=== PATIENT | female | born 1970 | race African-American/Black ===

== ENCOUNTER 2017-03-03 19:36 | Emergency (ER) | payer OTHER ==
[~2017-03-03] VITALS: Ht 160 cm; Wt 113.4 kg
[~2017-03-03 19:36] MED LIST: HYDR-971 PO; LISI1TAB5 PO; METR500T PO
[2017-03-03 19:54] VITALS: BP 170/102
--- NOTE | 2017-03-03 20:29 | PHYS DOC ---
Past Medical History Past Medical History: Hypertension Past Surgical History: , Tubal ligation Alcohol Use: None Drug Use: None Adult General Chief Complaint Chief Complaint: ANKLE PROBLEM HPI HPI Patient is a 46 year old female presents emergency department stating that she has having right ankle and Achilles pain and discomfort. She states that it started after she had been working a couple days ago. Patient states that she is was taken naproxen yesterday for the pain and discomfort however today she has not taken anything for pain. She states the pain is increased when she tries to ambulate. She does have full range of motion of the ankle. Peripheral pulses are 2+ cap refill brisk less than 2 seconds. She denies any trauma injury to this foot or ankle area. Review of Systems Review of Systems Constitutional: Denies fever or chills [] Eyes: Denies change in visual acuity, redness, or eye pain [] HENT: Denies nasal congestion or sore throat [] Respiratory: Denies cough or shortness of breath [] Cardiovascular: No additional information not addressed in HPI [] GI: Denies abdominal pain, nausea, vomiting, bloody stools or diarrhea [] : Denies dysuria or hematuria [] Musculoskeletal: Denies back pain. Complaint of right ankle/Achilles tendon discomfort. Integument: Denies rash or skin lesions [] Neurologic: Denies headache, focal weakness or sensory changes [] Endocrine: Denies polyuria or polydipsia [] Allergies Allergies Allergies Coded Allergies Type Severity Reaction Last Updated Verified Sulfa (Sulfonamide Antibiotics) Allergy Intermediate Hives. 05/05/16 Yes Physical Exam Physical Exam Constitutional: Well developed, well nourished, no acute distress, non-toxic appearance. [] HENT: Normocephalic, atraumatic, bilateral external ears normal, oropharynx moist, no oral exudates, nose normal. [] Eyes: PERRLA, EOMI, conjunctiva normal, no discharge. [] Neck: Normal range of motion, no tenderness, supple, no stridor. [] Cardiovascular:Heart rate regular rhythm Lungs & Thorax: No respiratory distress noted Skin: Warm, dry, no erythema, no rash. [] Back: No tenderness Extremities: tenderness noted at the right Achilles tendon area. This area appears to be slightly red. Gonzalez test with patient noted to have flexion of the foot. She has good sensation noted to the toes. Peripheral pulses are 2+ cap refill brisk less than 2 seconds. Patient does limp when she tries to ambulate. no cyanosis, no clubbing, ROM intact, no edema. [] Neurologic: Alert and oriented X 3, normal motor function, normal sensory function, no focal deficits noted. [] Psychologic: Affect normal, judgement normal, mood normal. [] Current Patient Data Vital Signs Vital Signs Date Time Temp Pulse Resp B/P (MAP) Pulse Ox O2 Delivery O2 Flow Rate FiO2 03/03/17 19:54 98.6 88 18 100 Room Air 98.6 EKG EKG [] Radiology/Procedures Radiology/Procedures [] Course & Med Decision Making Course & Med Decision Making Pertinent Labs and Imaging studies reviewed. (See chart for details) X-ray negative for any bony abnormalities per Dr. Evans. Patient will be encouraged to wear an Nathen wrap and follow-up with orthopedic. Recommended ice packs on 20 minutes off 20 minutes several times a day. Elevation as much as possible. Continue with the naproxen in which she takes twice a day. Patient agrees with discharge instructions treatment regimens and follow-up recommendations. Signs and symptoms to return back to emergency department as been provided. [] Dragon Disclaimer Dragon Disclaimer This electronic medical record was generated, in whole or in part, using a voice recognition dictation system. Departure Departure Impression: Primary Impression: Achilles tendon pain Disposition: 01 HOME, SELF-CARE Condition: STABLE Referrals: UNKNOWN PCP NAME (PCP) JOSE MITCHELL MD Patient Instructions: Achilles Tendinitis Additional Instructions: X-rays were negative for any bony abnormalities. Ice packs on 20 minutes off 20 minutes several times a day. Elevation as much as possible. Continue using the naproxen in which she state it twice a day. Wear the Nathen wrap for the next 5-7 days. Follow-up with orthopedic in the next week. Return back to emergency prior signs symptoms of become worse. EULALIO PENDLETON [employer] CENTER CONSULTANT Mar 03, 2017 20:29
--- NOTE | 2017-03-04 08:55 | RAD ---
Right ANKLE AP, LATERAL, OBLIQUE Clinical Indication: pain and discomfort Comparison: None. Findings: There is no acute fracture or dislocation. Moderate plantar calcaneal enthesophyte. Small dorsal osteophytes of the mid foot. The ankle mortise is intact. There is no ankle joint effusion. Mild soft tissue swelling. Faint density along the distal Achilles tendon may indicate calcific tendinosis. IMPRESSION: 1. No acute fracture. 2. Mild soft tissue swelling.
== END 2017-03-03 20:36 | disposition home or self-care (01) ==
LOC: ER 19:36
DX: M25.571 Pain in right ankle and joints of right foot (principal); I10 Essential (primary) hypertension; Z88.2 Allergy status to sulfonamides
CPT/HCPCS: 73610; 99284

== ENCOUNTER 2017-04-26 15:13 | Emergency (ER) | payer OTHER ==
[~2017-04-26] VITALS: Ht 160 cm; Wt 117.9 kg
[2017-04-26 15:55] VITALS: BP 145/104
[2017-04-26] MEDS ORDERED: PRED20TA PO (16:51)
[2017-04-26] MEDS ORDERED: CYCL10TA2 PO (16:51)
--- NOTE | 2017-04-26 16:52 | PHYS DOC ---
Past Medical History Past Medical History: Hypertension Past Surgical History: No Surgical History Alcohol Use: None Drug Use: None Adult General Chief Complaint Chief Complaint: LOWER BACK PAIN OR INJURY [facility] HPI Patient is a 46 year old female presents to the emergency department complaining of bilateral lower back pain since Monday. She states that she has having numbness and tingling that goes down bilateral legs to the knee area. She denies any difficulty with ambulation. She has not taken anything for the discomfort. She states that ibuprofen and naproxen causes her. Patient denies any fever, chills or any nausea vomiting denies any loss of bowel or bladder. Review of Systems Review of Systems Constitutional: Denies fever or chills [] Eyes: Denies change in visual acuity, redness, or eye pain [] HENT: Denies nasal congestion or sore throat [] Respiratory: Denies cough or shortness of breath [] Cardiovascular: No additional information not addressed in HPI [] GI: Denies abdominal pain, nausea, vomiting, bloody stools or diarrhea [] : Denies dysuria or hematuria [] Musculoskeletal: Bilateral lower back pain noted joint pain Integument: Denies rash or skin lesions [] Neurologic: Denies headache, focal weakness or sensory changes [] Endocrine: Denies polyuria or polydipsia [] Allergies Allergies Allergies Coded Allergies Type Severity Reaction Last Updated Verified Sulfa (Sulfonamide Antibiotics) Allergy Intermediate Hives. 05/05/16 Yes Physical Exam Physical Exam Constitutional: Well developed, well nourished, no acute distress, non-toxic appearance. [] HENT: Normocephalic, atraumatic, bilateral external ears normal, oropharynx moist, no oral exudates, nose normal. [] Eyes: PERRLA, EOMI, conjunctiva normal, no discharge. [] Neck: Normal range of motion, no tenderness, supple, no stridor. [] Cardiovascular:Heart rate regular rhythm, no murmur [] Lungs & Thorax: Bilateral breath sounds clear to auscultation [] Skin: Warm, dry, no erythema, no rash. [] Back: No thoracic spine, lumbar spine tenderness, no crepitus no deformities no step-offs noted. Patient did have tenderness on bilateral lower back areas. Extremities: No tenderness, no cyanosis, no clubbing, ROM intact, no edema. Patient was able to do straight leg raises with minimal discomfort. Peripheral pulses 2+ cap refill brisk less than 2 seconds. Neurologic: Alert and oriented X 3, normal motor function, normal sensory function, no focal deficits noted. [] Psychologic: Affect normal, judgement normal, mood normal. [] Current Patient Data Vital Signs Vital Signs Date Time Temp Pulse Resp B/P (MAP) Pulse Ox O2 Delivery O2 Flow Rate FiO2 04/26/17 15:55 98.2 87 18 96 Room Air 98.2 EKG EKG [] Radiology/Procedures Radiology/Procedures [] Course & Med Decision Making Course & Med Decision Making Pertinent Labs and Imaging studies reviewed. (See chart for details) Patient will be provided with a prescription for prednisone and Flexeril. Recommended ice packs on 20 minutes off 20 minutes several times a day. Recommended following up with primary care physician next 7-10 days. Signs and symptoms to return back to emergency department as been provided. Patient agrees with discharge instructions, treatment regimens and follow-up recommendations. All questions and concerns were answered patient's bedside. [] Dragon Disclaimer Dragon Disclaimer This electronic medical record was generated, in whole or in part, using a voice recognition dictation system. Departure Departure Impression: Primary Impression: Lower back pain Disposition: HOME, SELF-CARE Condition: STABLE Referrals: NO PCP (PCP) Patient Instructions: Back Pain, Adult, [id number] Additional Instructions: Activity as tolerated. Medication as prescribed. Flexeril will cause drowsiness do not take any be alert and oriented. Ice packs on 20 minutes off 20 minutes several times a day. Follow-up with her primary care physician next 7-10 days. Return back to emergency prior signs symptoms of become worse. Scripts Prednisone (PREDNISONE) 20 Mg Tablet 40 MG PO DAILY, #14 TAB Prov: EULALIO PENDLETON DRILLING MANAGER 04/26/17 Cyclobenzaprine Hcl (CYCLOBENZAPRINE HCL) 10 Mg Tablet 10 MG PO TID, #30 TAB Prov: EULALIO PENDLETON DRILLING MANAGER 04/26/17 EULALIO PENDLETON DRILLING MANAGER Apr 26, 2017 16:52
== END 2017-04-26 17:10 | disposition home or self-care (01) ==
LOC: ER 15:13
DX: M54.5 Low back pain (principal); R20.0 Anesthesia of skin; R20.2 Paresthesia of skin; I10 Essential (primary) hypertension; Z88.2 Allergy status to sulfonamides
CPT/HCPCS: 99283

== ENCOUNTER 2017-08-30 17:46 | Emergency (ER) | payer OTHER ==
[~2017-08-30] VITALS: Ht 160 cm; Wt 117.9 kg
[~2017-08-30 17:46] MED LIST changes: +CYCL10TA2 PO; +PRED20TA PO
[2017-08-30 18:15] VITALS: BP 179/102
[2017-08-30] MEDS ORDERED: AMOX500C PO (19:35)
--- NOTE | 2017-08-30 19:36 | PHYS DOC ---
Past Medical History Past Medical History: Hypertension Past Surgical History: Tubal ligation Alcohol Use: None Drug Use: None Adult General Chief Complaint Chief Complaint: SORE THROAT HPI HPI Patient is a 47 year old female presents to the emergency department stating that she's had a sore throat and discomfort for the last 2 weeks. She states that she feels as though there is something stuck in her throat. Patient states that she had been seen previous for this with a rapid strep be negative. Patient states that she is able to swallow with no difficulty denies any difficulty with breathing. Patient has not been taking anything for the pain and discomfort. She denies any fever, chills or any nausea or vomiting. Review of Systems Review of Systems Constitutional: Denies fever or chills [] Eyes: Denies change in visual acuity, redness, or eye pain [] HENT: Denies nasal congestion c/o sore throat [] Respiratory: Denies cough or shortness of breath [] Cardiovascular: No additional information not addressed in HPI [] GI: Denies abdominal pain, nausea, vomiting, bloody stools or diarrhea [] : Denies dysuria or hematuria [] Musculoskeletal: Denies back pain or joint pain [] Integument: Denies rash or skin lesions [] Neurologic: Denies headache, focal weakness or sensory changes [] Endocrine: Denies polyuria or polydipsia [] All other systems were reviewed and found to be within normal limits, except as documented in this note. Allergies Allergies Allergies Coded Allergies Type Severity Reaction Last Updated Verified Sulfa (Sulfonamide Antibiotics) Allergy Intermediate Hives. 05/05/16 Yes Physical Exam Physical Exam Constitutional: Well developed, well nourished, no acute distress, non-toxic appearance. [] HENT: Normocephalic, atraumatic, bilateral external ears normal, oropharynx moist, no oral exudates, nose normal. Bilateral tympanic membranes appear to be normal. Throat with no erythematous noted. Patient with no anterior cervical adenopathy noted. Patient does have redness noted along bilateral maxillary sinus areas. Eyes: PERRLA, EOMI, conjunctiva normal, no discharge. [] Neck: Normal range of motion, no tenderness, supple, no stridor. [] Cardiovascular:Heart rate regular rhythm, no murmur [] Lungs & Thorax: Bilateral breath sounds clear to auscultation [] Skin: Warm, dry, no erythema, no rash. [] Extremities: No tenderness, no cyanosis, no clubbing, ROM intact, no edema. [] Neurologic: Alert and oriented X 3, normal motor function, normal sensory function, no focal deficits noted. [] Psychologic: Affect normal, judgement normal, mood normal. [] Current Patient Data Vital Signs Vital Signs Date Time Temp Pulse Resp B/P (MAP) Pulse Ox O2 Delivery O2 Flow Rate FiO2 08/30/17 18:15 98.4 90 18 100 Room Air 98.4 EKG EKG [] Radiology/Procedures Radiology/Procedures [] Course & Med Decision Making Course & Med Decision Making Pertinent Labs and Imaging studies reviewed. (See chart for details) Rapid strep was negative. Soft tissue of the neck was negative per . Patient will be placed on amoxicillin 1 tablet twice a day for the next 10 days. Patient is being placed on amoxicillin as these symptoms abated going on for the last 2 weeks. I also suspect that she has a sinusitis infection started as the redness is noted over the maxillary sinus area. Recommended that she follow up with her primary care physician in the next 3-5 days if not feeling better. Recommended plenty of fluids. Tylenol or ibuprofen for fever chills or generalized body aches and discomfort. Patient will be discharged home in stable condition signs and symptoms to return back to the emergency department has been provided. All questions and concerns been answered at the patients bedside. [] Dragon Disclaimer Dragon Disclaimer This electronic medical record was generated, in whole or in part, using a voice recognition dictation system. Departure Departure Impression: Primary Impression: Pharyngitis Additional Impression: Sinusitis Disposition: 01 HOME, SELF-CARE Condition: STABLE Referrals: UNKNOWN PCP NAME (PCP) Patient Instructions: Sinusitis, [id number], Viral and Bacterial Pharyngitis , [id number] Additional Instructions: Activity as tolerated. Medications as prescribed. Drink plenty of fluids. Follow-up through primary care physician the next 3-5 days. Return back to the emergency department as needed for signs and symptoms that become worse. Scripts Amoxicillin (AMOXICILLIN) 500 Mg Capsule 1 CAP PO BID, #20 CAP Prov: EULALIO PENDLETON APRN 08/30/17 Problem Qualifiers Primary Impression: Pharyngitis Pharyngitis/tonsillitis etiology: unspecified etiology Qualified Codes: J02.9 - Acute pharyngitis, unspecified EULALIO PENDLETON [employer] SUPERINTENDENT Aug 30, 2017 19:36
--- NOTE | 2017-08-31 07:28 | RAD ---
Indication: Throat discomfort. Time of exam 1901 hours. 2 views of the soft tissues of the neck were obtained. The prevertebral tissues are normal. No definite foreign body is seen. The cervical spine shows normal alignment. The epiglottis may be slightly thickened. This could be projectional. No other abnormalities are seen. Impression: Possible mild thickening of the epiglottis which can be seen with epiglottitis. Clinical correlation is recommended. CT of the soft tissues of the neck may be useful for further evaluation, if clinically indicated.
[2017-08-31 07:45] LABS: NEGATIVE OBC STREP NEG; POSITIVE OBC STREP POS
== END 2017-08-30 19:40 | disposition home or self-care (01) ==
LOC: ER 17:46
DX: J02.9 Acute pharyngitis, unspecified (principal); J32.9 Chronic sinusitis, unspecified
CPT/HCPCS: 70360; 87070; 87880; 99285-25

== ENCOUNTER 2017-09-15 20:19 | Emergency (ER) | payer OTHER | END 2017-09-15 20:55 | disposition home or self-care (01) | LOC: ER 20:19 | DX: M54.32 Sciatica, left side (principal); M79.675 Pain in left toe(s); I10 Essential (primary) hypertension; Z88.2 Allergy status to sulfonamides | CPT/HCPCS: 99283 ==

== ENCOUNTER 2018-04-07 21:45 | Emergency (ER) | payer OTHER ==
[2018-04-07 22:21] LABS: BILIRUBIN,URINE NEGATIVE (NEG); CLARITY,URINE CLEAR; COLOR,URINE YELLOW; GLUCOSE,URINE NEGATIVE (NEG); NITRITE,URINE NEGATIVE (NEG); PH,URINE 6.5; PROTEIN,URINE NEGATIVE (NEG-TRACE)
[2018-04-07 22:26] LABS: BACTERIA,URINE FEW /HPF (0-FEW); SQUAMOUS EPITHELIAL CELL,UR MANY /LPF
[2018-04-07 22:27] LABS: ADD MAN DIFF? NO
[2018-04-07] MEDS: ONDANSETRON PF 4 MG/2 ML VIAL. IV (22:27)
[2018-04-07] MEDS: FAMOTIDINE 20 MG/2 ML VIAL IVP (22:27)
[2018-04-07 22:29] LABS: BASO % 0 % (0-3); EOS % 0 % (0-3); HEMATOCRIT 37.2 % (36.0-47.0); HEMOGLOBIN 12.6 g/dL (12.0-15.5); LYMPH # 1.6 x10^3/uL (1.0-4.8); LYMPH % 25 % (24-48); MEAN CORPUSCULAR HEMOGLOBIN 26 pg (25-35); MEAN CORPUSCULAR HGB CONC 34 g/dL (31-37); MEAN CORPUSCULAR VOLUME 78 fL (79-100); MONO # 0.4 x10^3/uL (0.0-1.1); MONO % 6 % (0-9); NEUT # 4.5 x10^3uL (1.8-7.7); NEUT % 69 % (31-73); PLATELET COUNT 228 x10^3/uL (140-400); RED BLOOD COUNT 4.76 x10^6/uL (3.50-5.40); RED CELL DISTRIBUTION WIDTH 16.2 % (11.5-14.5); WHITE BLOOD COUNT 6.6 x10^3/uL (4.0-11.0)
[2018-04-07 22:37] LABS: NEG OBC UR NEG; POS OBC UR POS; U PREG PATIENT NEGATIVE (NEG)
[2018-04-07 22:38] LABS: PARTIAL THROMBOPLASTIN TIME 29 SEC (24-38); PROTHROMBIN TIME PATIENT 12.5 SEC (11.7-14.0)
[2018-04-07 22:41] LABS: ANION GAP 7 (6-14); BLOOD UREA NITROGEN 14 mg/dL (7-20); BUN/CREATININE RATIO 18 (6-20); CALCIUM 8.4 mg/dL (8.5-10.1); CARBON DIOXIDE 28 mmol/L (21-32); CHLORIDE 105 mmol/L (98-107); CREATININE 0.8 mg/dL (0.6-1.0); GFR 92.6; GLUCOSE 104 mg/dL (70-99); POTASSIUM 3.2 mmol/L (3.5-5.1); SODIUM 140 mmol/L (136-145)
[2018-04-07 22:47] LABS: ALBUMIN 3.2 g/dL (3.4-5.0); ALBUMIN/GLOBULIN RATIO 0.9 (1.0-1.7); ALK PHOS 98 U/L (46-116); ALT (SGPT) 22 U/L (14-59); AST (SGOT) 17 U/L (15-37); LIPASE 212 U/L (73-393); MAGNESIUM 1.6 mg/dL (1.8-2.4); TOTAL BILIRUBIN 0.7 mg/dL (0.2-1.0); TOTAL PROTEIN 6.6 g/dL (6.4-8.2)
[2018-04-07 22:48] LABS: TROPONINI < 0.017 ng/mL (0.000-0.055)
[2018-04-07 22:55] LABS: CKMB INDEX 0.9 % (0-4); CKMB MASS 0.9 ng/mL (0.0-3.6); CREATINE KINASE 100 U/L (26-192)
[2018-04-08] MEDS: POTASSIUM CHLORIDE 20 MEQ TABLET.ER. PO (00:35)
[2018-04-08] MEDS: MAGNESIUM OXIDE 400 MG TABLET PO (00:35)
== END 2018-04-08 00:38 | disposition home or self-care (01) ==
LOC: ER 04-08 00:38
DX: K80.50 Calculus of bile duct without cholangitis or cholecystitis without obstruction (principal); E87.6 Hypokalemia; E83.42 Hypomagnesemia; I10 Essential (primary) hypertension; Z98.51 Tubal ligation status; Z88.2 Allergy status to sulfonamides
CPT/HCPCS: 36415; 76705; 80053; 81001; 81025; 82553; 83690; 83735; 84484; 85025; 85610; 85730; 93005; 96374; 96375; 99285-25; J2405; S0028

== ENCOUNTER 2018-05-05 13:13 | Emergency (ER) | payer OTHER ==
[~2018-05-05] VITALS: Ht 157.5 cm; Wt 117.9 kg
[~2018-05-05 13:13] MED LIST changes: +AMOX500C PO; +FAMO-63 PO; +NAPR-514 PO; +ONDA4TAB7 PO
[2018-05-05 14:00] VITALS: BP 162/96
--- NOTE | 2018-05-05 14:15 | PHYS DOC ---
Past Medical History Past Medical History: Hypertension Past Surgical History: , Tubal ligation Alcohol Use: None Drug Use: None Adult General Chief Complaint Chief Complaint: ABDOMINAL PAIN HPI HPI Patient is a 47 year old female who presents with umbilical abdominal pain 2 days is nonradiating. Patient states the pain is worse when she bends or when she lays down. Patient also has a lymph node that she noticed in her right armpit on the side of the right breast area. Patient states is nontender. States her last bowel movement was this morning. Patient denies nausea or vomiting, chest pain, shortness of air. Denies any urinary symptoms or fevers. Review of Systems Review of Systems Constitutional: Denies fever or chills [] Eyes: Denies change in visual acuity, redness, or eye pain [] HENT: Denies nasal congestion or sore throat [] Respiratory: Denies cough or shortness of breath [] Cardiovascular: No additional information not addressed in HPI [] GI: Umbilical abdominal pain. Denies nausea, vomiting, bloody stools or diarrhea [] : Denies dysuria or hematuria [] Musculoskeletal: Denies back pain or joint pain [] Integument: Right sided breast lymph node. Denies rash or skin lesions [] Neurologic: Denies headache, focal weakness or sensory changes [] Endocrine: Denies polyuria or polydipsia [] All other systems were reviewed and found to be within normal limits, except as documented in this note. Current Medications Current Medications Current Medications Medications (Trade) Dose Ordered Sig/Tristan Start Time Stop Time Status Last Admin Dose Admin Iohexol (Omnipaque 300 Mg/ml) 75 ml 1X ONCE 05/05/18 14:30 05/05/18 14:31 DC 05/05/18 14:59 75 ML Allergies Allergies Allergies Coded Allergies Type Severity Reaction Last Updated Verified Sulfa (Sulfonamide Antibiotics) Allergy Intermediate Hives. 05/05/16 Yes Physical Exam Physical Exam Constitutional: Well developed, well nourished, no acute distress, non-toxic appearance. [] HENT: Normocephalic, atraumatic, bilateral external ears normal, oropharynx moist, no oral exudates, nose normal. [] Eyes: PERRLA, EOMI, conjunctiva normal, no discharge. [] Neck: Normal range of motion, no tenderness, supple, no stridor. [] Cardiovascular:Heart rate regular rhythm, no murmur [] Lungs & Thorax: Bilateral breath sounds clear to auscultation [] Abdomen: Bowel sounds normal, soft, no tenderness, no masses, no pulsatile masses. [] Skin: Right sided breast raised, nontender, mobile lymph node. Warm, dry, no erythema, no rash. [] Back: No tenderness, no CVA tenderness. [] Extremities: No tenderness, no cyanosis, no clubbing, ROM intact, no edema. [] Neurologic: Alert and oriented X 3, normal motor function, normal sensory function, no focal deficits noted. [] Psychologic: Affect normal, judgement normal, mood normal. [] Current Patient Data Vital Signs Vital Signs Date Time Temp Pulse Resp B/P (MAP) Pulse Ox O2 Delivery O2 Flow Rate FiO2 05/05/18 14:00 98.2 81 16 162/96 (118) 98 Room Air 98.2 Lab Values Laboratory Tests Test 05/05/18 13:45 05/05/18 14:00 Urine Collection Type Unknown Urine Color Yellow Urine Clarity Clear Urine pH 7.5 Urine Specific [place] 1.025 Urine Protein Negative mg/dL (NEG-TRACE) Urine Glucose (UA) Negative mg/dL (NEG) Urine Ketones (Stick) Negative mg/dL (NEG) Urine Blood Negative (NEG) Urine Nitrite Negative (NEG) Urine Bilirubin Negative (NEG) Urine Urobilinogen Dipstick 1.0 mg/dL (0.2 mg/dL) Urine Leukocyte Esterase Trace (NEG) Urine RBC 1-2 /HPF (0-2) Urine WBC Rare /HPF (0-4) Urine Squamous Epithelial Cells Mod /LPF Urine Bacteria Few /HPF (0-FEW) Urine Mucus Slight /LPF Urine Opiates Screen Neg (NEG) Urine Methadone Screen Neg (NEG) Urine Barbiturates Neg (NEG) Urine Phencyclidine Screen Neg (NEG) Urine Amphetamine/Methamphetamine Neg (NEG) Urine Benzodiazepines Screen Neg (NEG) Urine Cocaine Screen Neg (NEG) Urine Cannabinoids Screen Neg (NEG) Urine Ethyl Alcohol Neg (NEG) White Blood Count 7.0 x10^3/uL (4.0-11.0) Red Blood Count 5.12 x10^6/uL (3.50-5.40) Hemoglobin 13.3 g/dL (12.0-15.5) Hematocrit 40.0 % (36.0-47.0) Mean Corpuscular Volume 78 fL (79-100) L Mean Corpuscular Hemoglobin 26 pg (25-35) Mean Corpuscular Hemoglobin Concent 33 g/dL (31-37) Red Cell Distribution Width 16.6 % (11.5-14.5) H Platelet Count 269 x10^3/uL (140-400) Neutrophils (%) (Auto) 70 % (31-73) Lymphocytes (%) (Auto) 23 % (24-48) L Monocytes (%) (Auto) 8 % (0-9) Eosinophils (%) (Auto) 0 % (0-3) Basophils (%) (Auto) 0 % (0-3) Neutrophils # (Auto) 4.9 x10^3uL (1.8-7.7) Lymphocytes # (Auto) 1.6 x10^3/uL (1.0-4.8) Monocytes # (Auto) 0.5 x10^3/uL (0.0-1.1) Eosinophils # (Auto) 0.0 x10^3/uL (0.0-0.7) Basophils # (Auto) 0.0 x10^3/uL (0.0-0.2) Sodium Level 138 mmol/L (136-145) Potassium Level 3.7 mmol/L (3.5-5.1) Chloride Level 104 mmol/L (98-107) Carbon Dioxide Level 26 mmol/L (21-32) Anion Gap 8 (6-14) Blood Urea Nitrogen 18 mg/dL (7-20) Creatinine 0.9 mg/dL (0.6-1.0) Estimated GFR (Cockcroft-Gault) 80.9 BUN/Creatinine Ratio 20 (6-20) Glucose Level 87 mg/dL (70-99) Calcium Level 9.2 mg/dL (8.5-10.1) Total Bilirubin 0.8 mg/dL (0.2-1.0) Aspartate Amino Transferase (AST) 12 U/L (15-37) L Alanine Aminotransferase (ALT) 16 U/L (14-59) Alkaline Phosphatase 94 U/L (46-116) Troponin I Quantitative < 0.017 ng/mL (0.000-0.055) Total Protein 7.0 g/dL (6.4-8.2) Albumin 3.8 g/dL (3.4-5.0) Albumin/Globulin Ratio 1.2 (1.0-1.7) Lipase 236 U/L (73-393) Laboratory Tests 05/05/18 14:00 Laboratory Tests 05/05/18 14:00 EKG EKG Sinus Rhythm[] Interpretation Time: [address] Hernandez Radiology/Procedures Radiology/Procedures CT Abdomen and Chest x ray[] Impressions: [facility] [address] [place] [address] IMAGING REPORT Signed PATIENT: CLINTON TERAN ACCOUNT: [id number] : 1970 LOCATION: ER AGE: 47 SEX: F EXAM STATUS: REG ER ORD. PHYSICIAN: EULALIO RIBERA APRN REASON: Abdominal pain PROCEDURE: CT ABD PELV W/ IV CONTRST ONLY PQRS Compliance statement: One or more of the following individualized dose reduction techniques were utilized for this examination: 1. Automated exposure control. 2. Adjustment of the mA and/or kV according to patient size. 3. Use of iterative reconstruction technique. Indication:LOWER ABD PAIN
OMNI 300 75ML, NO PRIORS TECHNIQUE: CT abdomen and pelvis with IV contrast with multiplanar reformats. COMPARISON: None FINDINGS: Heart is normal in size. No pericardial or pleural effusion. Clear lung bases. Liver, spleen, pancreas, adrenals and kidneys are within normal limits. Single gallstone noted. No pericholecystic fluid. No enlarged retroperitoneal or pelvic adenopathy. No free pelvic fluid or ascites. No bowel obstruction. Normal appendix. Anteverted uterus. Endometrial stripe measures 1.6 mm and is thickened. Urinary bladder demonstrates no radiopaque stones. Small umbilical hernia containing omental fat. Shotty central mesentery lymph nodes are seen with hazy appearance of the mesenteric fat, nonspecific. No pneumoperitoneum. No suspicious bony lesion. IMPRESSION: 1. No bowel obstruction. Normal appendix. 2. No nephrolithiasis or hydronephrosis. 3. Thickened endometrium. Correlate with timing of menstrual cycle. 4. Central shotty mesenteric lymph nodes with haziness in the mesenteric fat, nonspecific. 5. Cholelithiasis without imaging evidence of acute cholecystitis. Electronically signed by: Moises Guillen DO (05/05/2018 3:21 PM) [facility] DICTATED and SIGNED BY: MOISES GUILLEN DO DATE: 05/05/18 1517 [facility] [address] [place] [address] IMAGING REPORT Signed PATIENT: CLINTON TERAN ACCOUNT: [id number] : 1970 LOCATION: ER AGE: 47 SEX: F EXAM STATUS: REG ER ORD. PHYSICIAN: EULALIO RIBERA APRN REASON: abdominal pain PROCEDURE: CHEST PA & LATERAL EXAM: Chest, 2 views. HISTORY: Pain. COMPARISON: 08/01/2014 FINDINGS: Frontal and lateral views of the chest are obtained. There is no infiltrate, pleural effusion or pneumothorax. The heart is normal in size. IMPRESSION: No acute pulmonary finding. Electronically signed by: Keyla Rayo MD (05/05/2018 2:31 PM) [facility] DICTATED and SIGNED BY: KEYLA RAYO MD DATE: 05/05/18 1430 Course & Med Decision Making Course & Med Decision Making Upon examination patient has umbilical tenderness with palpation. Patient states that the pain is worse when laying down or bending over. Patient had a bowel movement this morning that was normal for her. Patient denies nausea or vomiting. Patient denies chest pain or shortness of air. Patient also complains of a right sided breast raised lymph node that is nontender and mobile. Patient labs are unremarkable. Patients CT show a omental umbilical hernia. I spoke with Dr Zafar from general surgery and was told to have the patient call first this monday to get a appointment. Patient is sent home with [place] for pain. Patient agrees to this discharge plan. Patient is also referred to a lace sewer so that she can follow up concerning her right breast lymph node. patient also to receive a US on Right breast before leaving and showed a lipoma. [] Dragon Disclaimer Dragon Disclaimer This electronic medical record was generated, in whole or in part, using a voice recognition dictation system. Departure Departure Impression: Primary Impression: Umbilical hernia Disposition: HOME, SELF-CARE Condition: STABLE Referrals: NO PCP (PCP) KAYCE BROWN MD, THOMAS W MD Patient Instructions: Hernia Additional Instructions: Follow up with your primary care or general surgery. Take medications as prescribed. Scripts Hydrocodone/Apap 5-325 (NORCO 5-325 TABLET) 1 Each Tablet 1 TAB PO PRN Q6HRS PRN for PAIN, #5 TAB 0 Refills Prov: EULALIO RIBERA BEAUTY ARTIST 05/05/18 Problem Qualifiers Primary Impression: Umbilical hernia Obstruction and gangrene presence: without obstruction or gangrene Qualified Codes: K42.9 - Umbilical hernia without obstruction or gangrene EULALIO RIBERA BEAUTY ARTIST May 05, 2018 14:15
[2018-05-05 14:17] LABS: BILIRUBIN,URINE NEGATIVE (NEG); CLARITY,URINE CLEAR; COLOR,URINE YELLOW; NITRITE,URINE NEGATIVE (NEG); PH,URINE 7.5; PROTEIN,URINE NEGATIVE (NEG-TRACE)
[2018-05-05 14:19] LABS: BASO % 0 % (0-3); EOS % 0 % (0-3); HEMOGLOBIN 13.3 g/dL (12.0-15.5); LYMPH # 1.6 x10^3/uL (1.0-4.8); LYMPH % 23 % (24-48); MEAN CORPUSCULAR HEMOGLOBIN 26 pg (25-35); MEAN CORPUSCULAR HGB CONC 33 g/dL (31-37); MEAN CORPUSCULAR VOLUME 78 fL (79-100); MONO # 0.5 x10^3/uL (0.0-1.1); MONO % 8 % (0-9); NEUT # 4.9 x10^3uL (1.8-7.7); NEUT % 70 % (31-73); PLATELET COUNT 269 x10^3/uL (140-400); RED BLOOD COUNT 5.12 x10^6/uL (3.50-5.40); RED CELL DISTRIBUTION WIDTH 16.6 % (11.5-14.5)
[2018-05-05 14:28] LABS: CALCIUM 9.2 mg/dL (8.5-10.1); CREATININE 0.9 mg/dL (0.6-1.0); GFR 80.9; POTASSIUM 3.7 mmol/L (3.5-5.1)
[2018-05-05 14:28] LABS: BARBITURATES NEG (NEG); BENZODIAZEPINES NEG (NEG); CANNABINOIDS NEG (NEG); COCAINE NEG (NEG); METHADONE NEG (NEG); OPIATES NEG (NEG); PHENCYCLIDINE NEG (NEG)
[2018-05-05 14:30] LABS: BACTERIA,URINE FEW /HPF (0-FEW); SQUAMOUS EPITHELIAL CELL,UR MOD /LPF; WBC,URINE RARE /HPF (0-4)
[2018-05-05] MEDS ORDERED: IOHEXOL 300 MG/ML 100ML VIAL. IV ONE (14:30)
[2018-05-05 14:31] LABS: AMPHETAMINE/METHAMPHETAMINE NEG (NEG)
[2018-05-05 14:33] LABS: ALBUMIN 3.8 g/dL (3.4-5.0); ALBUMIN/GLOBULIN RATIO 1.2 (1.0-1.7); TOTAL BILIRUBIN 0.8 mg/dL (0.2-1.0)
--- NOTE | 2018-05-05 14:34 | RAD ---
EXAM: Chest, 2 views. HISTORY: Pain. COMPARISON: 08/01/2014 FINDINGS: Frontal and lateral views of the chest are obtained. There is no infiltrate, pleural effusion or pneumothorax. The heart is normal in size. IMPRESSION: No acute pulmonary finding. Electronically signed by: Unique Cates MD (05/05/2018 2:31 PM) [facility]
--- NOTE | 2018-05-05 15:24 | RAD ---
PQRS Compliance statement: One or more of the following individualized dose reduction techniques were utilized for this examination: 1. Automated exposure control. 2. Adjustment of the mA and/or kV according to patient size. 3. Use of iterative reconstruction technique. Indication:LOWER ABD PAIN
OMNI 300 75ML, NO PRIORS TECHNIQUE: CT abdomen and pelvis with IV contrast with multiplanar reformats. COMPARISON: None FINDINGS: Heart is normal in size. No pericardial or pleural effusion. Clear lung bases. Liver, spleen, pancreas, adrenals and kidneys are within normal limits. Single gallstone noted. No pericholecystic fluid. No enlarged retroperitoneal or pelvic adenopathy. No free pelvic fluid or ascites. No bowel obstruction. Normal appendix. Anteverted uterus. Endometrial stripe measures 1.6 mm and is thickened. Urinary bladder demonstrates no radiopaque stones. Small umbilical hernia containing omental fat. Shotty central mesentery lymph nodes are seen with hazy appearance of the mesenteric fat, nonspecific. No pneumoperitoneum. No suspicious bony lesion. IMPRESSION: 1. No bowel obstruction. Normal appendix. 2. No nephrolithiasis or hydronephrosis. 3. Thickened endometrium. Correlate with timing of menstrual cycle. 4. Central shotty mesenteric lymph nodes with haziness in the mesenteric fat, nonspecific. 5. Cholelithiasis without imaging evidence of acute cholecystitis. Electronically signed by: Moises Guillen DO (05/05/2018 3:21 PM) [facility]
[2018-05-05] MEDS ORDERED: HYDR-971 PO (15:44)
--- NOTE | 2018-05-05 18:58 | RAD ---
EXAM: Right axillary sonogram. HISTORY: 47-year-old female presents with a palpable axillary lump. TECHNIQUE: Sonographic imaging of the right axilla was performed. COMPARISON: None. FINDINGS: There is a hyperechoic solid lesion within the subcutaneous fat of the right axilla measuring 1.7 x 0.9 x 1.1 cm. This demonstrates no posterior shadowing or internal blood flow. This corresponds with the site of palpable concern. IMPRESSION: 1.7 cm solid echogenic lesion within the subcutaneous fat of the right axilla at the site of palpable concern. This is less circumscribed than typical for a lipoma. However, the echogenicity of the lesion favors benignity. Continued clinical follow-up of palpable abnormalities is recommended. Sonographic imaging can be performed to confirm stability if there is continuing concern. Electronically signed by: Unique Cates MD (05/05/2018 6:55 PM) [facility]
--- NOTE | 2018-05-06 11:08 | EKG ---
[facility] [address] [place] [address] Test Date: 2018-05-05 Test Time: 14:10:04 Pat Name: CLINTON TERAN Department: Room: Gender: F Packer Inspector: : 1970 Requested By: EULALIO RIBERA Order Number: [id number] Reading MD: Ulysses Vale MD Measurements Intervals [place] Rate: 73 P: 19 NC: 162 QRS: -11 QRSD: 76 T: 60 QT: 384 QTc: 426 Interpretive Statements SINUS RHYTHM Electronically Signed On 05-08-2018 10:37:57 CDT by Ulysses Vale MD
== END 2018-05-05 18:09 | disposition home or self-care (01) ==
LOC: ER 13:13
DX: K42.9 Umbilical hernia without obstruction or gangrene (principal); I10 Essential (primary) hypertension; Z98.51 Tubal ligation status; Z98.890 Other specified postprocedural states; Z88.2 Allergy status to sulfonamides
CPT/HCPCS: 36415; 71046; 74177; 76641; 80053; 80307; 81001; 83690; 84484; 85025; 87086; 93005; 99285; Q9967; G0479

== ENCOUNTER 2019-01-13 12:47 | Emergency (ER) | payer SELFPAY ==
[~2019-01-13] VITALS: Ht 160 cm; Wt 117.9 kg
[~2019-01-13 12:47] MED LIST changes: +HYDR-3164 PO; -HYDR-971 PO
[2019-01-13 14:18] LABS: BASO % 0 % (0-3); EOS % 0 % (0-3); LYMPH # 1.3 x10^3/uL (1.0-4.8); LYMPH % 23 % (24-48); MEAN CORPUSCULAR HEMOGLOBIN 26 pg (25-35); MEAN CORPUSCULAR HGB CONC 33 g/dL (31-37); MEAN CORPUSCULAR VOLUME 79 fL (79-100); MONO # 0.4 x10^3/uL (0.0-1.1); MONO % 6 % (0-9); NEUT # 4.1 x10^3uL (1.8-7.7); NEUT % 71 % (31-73); PLATELET COUNT 266 x10^3/uL (140-400); RED BLOOD COUNT 5.09 x10^6/uL (3.50-5.40); RED CELL DISTRIBUTION WIDTH 16.5 % (11.5-14.5); WHITE BLOOD COUNT 5.8 x10^3/uL (4.0-11.0)
[2019-01-13 14:20] LABS: COLOR,URINE RED; NITRITE,URINE NEGATIVE (NEG); PROTEIN,URINE 100 mg/dL (NEG-TRACE); UROBILINOGEN,URINE 0.2 mg/dL (0.2 mg/dL)
[2019-01-13 14:30] LABS: CALCIUM 8.7 mg/dL (8.5-10.1); CREATININE 0.8 mg/dL (0.6-1.0); GFR 92.2; POTASSIUM 3.6 mmol/L (3.5-5.1)
[2019-01-13 14:34] LABS: BILIRUBIN,URINE NEGATIVE (NEG); CLARITY,URINE BLOODY
[2019-01-13 14:35] LABS: BACTERIA,URINE MANY /HPF (0-FEW); RBC,URINE TNTC /HPF (0-2); SQUAMOUS EPITHELIAL CELL,UR FEW /LPF
[2019-01-13 14:38] LABS: U PREG PATIENT NEGATIVE (NEG)
[2019-01-13 14:38] LABS: ALBUMIN 3.5 g/dL (3.4-5.0); ALBUMIN/GLOBULIN RATIO 0.9 (1.0-1.7); TOTAL PROTEIN 7.4 g/dL (6.4-8.2)
--- NOTE | 2019-01-13 15:41 | PHYS DOC ---
Past Medical History Past Medical History: Hypertension Additional Past Medical Histor: non compliant Past Surgical History: , Tubal ligation Alcohol Use: None Drug Use: None Adult General Chief Complaint Chief Complaint: ABDOMINAL PAIN [facility] HPI 48-year-old female presents to ER with complaints of chronic abdominal pain which is been ongoing for several months and she is just not followed up with GI or general surgeon as she had been previously advised to do. Patient reports history of gallstones. Patient states abdominal pain is diffuse denies any nausea or vomiting. Patient is hypertensive at time of triage and states she still hasn't got a prescription for her blood pressure medicine. Patient was advised to do so during her last ER visit as her BP was elevated during that visit also but states she is just been too busy. Review of Systems Review of Systems Constitutional: Denies fever or chills [] Eyes: Denies change in visual acuity, redness, or eye pain [] HENT: Denies nasal congestion or sore throat [] Respiratory: Denies cough or shortness of breath [] Cardiovascular: No additional information not addressed in HPI [] GI: Denies nausea, vomiting, bloody stools or diarrhea. Reports diffuse upper abd pain- worse on rt side abd. Denies acute change in abd pain since evaluated last mo. in ER : Denies dysuria or hematuria [] Musculoskeletal: Denies back pain or joint pain [] Integument: Denies rash or skin lesions [] Neurologic: Denies headache, focal weakness or sensory changes. Denies dizziness Endocrine: Denies polyuria or polydipsia [] All other systems were reviewed and found to be within normal limits, except as documented in this note. Current Medications Current Medications Current Medications Medications (Trade) Dose Ordered Sig/Tristan Start Time Stop Time Status Last Admin Dose Admin Clonidine HCl (Catapres) 0.1 mg 1X ONCE 01/13/19 17:00 01/13/19 17:05 DC 01/13/19 17:00 0.1 MG Allergies Allergies Allergies Coded Allergies Type Severity Reaction Last Updated Verified Sulfa (Sulfonamide Antibiotics) Allergy Intermediate Hives. 05/05/16 Yes Physical Exam Physical Exam Constitutional: Well developed, well nourished, no acute distress, non-toxic appearance. [] HENT: Normocephalic, atraumatic, oropharynx moist, no oral exudates, nose normal. [] Eyes: Pupils equal, conjunctiva normal, no discharge. [] Neck: Normal range of motion, no tenderness, supple, no stridor. [] Cardiovascular: Heart rate regular rhythm, no murmur [] Lungs & Thorax: Bilateral breath sounds clear to auscultation- resp. equal/nonlabored Abdomen: Bowel sounds normal, soft/obese, diffuse tenderness across rt side upper abd- she reports pain is same as last mo. denies radiation into e xtremities/chest/neck and denies acute change from prior evaluations, no masses, no pulsatile masses. [] Skin: Warm, dry, no erythema, no rash. [] Back: No tenderness, no CVA tenderness. [] Extremities: No tenderness, no cyanosis, no clubbing, ROM intact, no edema. [] Neurologic: Alert and oriented X 3, normal motor function, normal sensory function, no focal deficits noted. [] Psychologic: Affect normal, judgement normal, mood normal. [] Current Patient Data Vital Signs Vital Signs Date Time Temp Pulse Resp B/P (MAP) Pulse Ox O2 Delivery O2 Flow Rate FiO2 01/13/19 17:36 71 16 153/83 (106) 98 Room Air 01/13/19 13:42 98.5 98.5 Lab Values Laboratory Tests Test 01/13/19 13:40 01/13/19 14:10 Urine Collection Type Unknown Urine Color Red Urine Clarity Bloody Urine pH 5.0 Urine Specific [place] 1.020 Urine Protein 100 mg/dL (NEG-TRACE) Urine Glucose (UA) Negative mg/dL (NEG) Urine Ketones (Stick) Trace mg/dL (NEG) Urine Blood Large (NEG) Urine Nitrite Negative (NEG) Urine Bilirubin Negative (NEG) Urine Urobilinogen Dipstick 0.2 mg/dL (0.2 mg/dL) Urine Leukocyte Esterase Small (NEG) Urine RBC Tntc /HPF (0-2) Urine WBC 5-10 /HPF (0-4) Urine Squamous Epithelial Cells Few /LPF Urine Bacteria Many /HPF (0-FEW) Urine Mucus Mod /LPF Urine Test Negative (NEG) White Blood Count 5.8 x10^3/uL (4.0-11.0) Red Blood Count 5.09 x10^6/uL (3.50-5.40) Hemoglobin 13.0 g/dL (12.0-15.5) Hematocrit 40.0 % (36.0-47.0) Mean Corpuscular Volume 79 fL (79-100) Mean Corpuscular Hemoglobin 26 pg (25-35) Mean Corpuscular Hemoglobin Concent 33 g/dL (31-37) Red Cell Distribution Width 16.5 % (11.5-14.5) H Platelet Count 266 x10^3/uL (140-400) Neutrophils (%) (Auto) 71 % (31-73) Lymphocytes (%) (Auto) 23 % (24-48) L Monocytes (%) (Auto) 6 % (0-9) Eosinophils (%) (Auto) 0 % (0-3) Basophils (%) (Auto) 0 % (0-3) Neutrophils # (Auto) 4.1 x10^3uL (1.8-7.7) Lymphocytes # (Auto) 1.3 x10^3/uL (1.0-4.8) Monocytes # (Auto) 0.4 x10^3/uL (0.0-1.1) Eosinophils # (Auto) 0.0 x10^3/uL (0.0-0.7) Basophils # (Auto) 0.0 x10^3/uL (0.0-0.2) Sodium Level 138 mmol/L (136-145) Potassium Level 3.6 mmol/L (3.5-5.1) Chloride Level 103 mmol/L (98-107) Carbon Dioxide Level 25 mmol/L (21-32) Anion Gap 10 (6-14) Blood Urea Nitrogen 10 mg/dL (7-20) Creatinine 0.8 mg/dL (0.6-1.0) Estimated GFR (Cockcroft-Gault) 92.2 BUN/Creatinine Ratio 13 (6-20) Glucose Level 102 mg/dL (70-99) H Calcium Level 8.7 mg/dL (8.5-10.1) Total Bilirubin 1.0 mg/dL (0.2-1.0) Aspartate Amino Transferase (AST) 13 U/L (15-37) L Alanine Aminotransferase (ALT) 15 U/L (14-59) Alkaline Phosphatase 103 U/L (46-116) Total Protein 7.4 g/dL (6.4-8.2) Albumin 3.5 g/dL (3.4-5.0) Albumin/Globulin Ratio 0.9 (1.0-1.7) L Lipase 107 U/L (73-393) Laboratory Tests 01/13/19 14:10 Laboratory Tests 01/13/19 14:10 Microbiology 01/13/19 Urine Culture - Final, Complete 01/13/19 Urine Culture Result 1 (SAMIA) - Final, Complete EKG EKG [] Radiology/Procedures Radiology/Procedures [] Course & Med Decision Making Course & Med Decision Making Pertinent Labs reviewed. (See chart for details) 1525: On reevaluation patient is denying any change in her symptoms. Patient is nontoxic in appearance and in no visible distress. Patient's blood pressure is 188/110. In-depth conversation had with patient regarding risk of having her blood pressure remained this high. Patient advised she would have to follow-up with her primary care physician tomorrow for reevaluation and discussion on her blood pressure. Test results were discussed- WBCs NL at 5.8 no left shift- CMP unremarkable- AST/ALT 13/15 Lipase NL at 107; renal function NL. UA with lg blood/sm. leuks- pt finishing menses- moderate bacteria and squamous on micro. Pt is denying any urinary sxs- probable contamination. Neg. UCG. No imaging done as pt reports this is similar pain as she has been experiencing for months without acute changes. She reports she has eaten today denying N/V or increased pain. Discharge instructions were discussed with patient patient states she is going to [facility] clinic tomorrow for reevaluation on her blood pressure. Pt's fiance reports he will make sure pt goes to clinic for re-eval and f/u care for BP. Will provide patient with prescription for dicyclomine for abdominal pain. Will provide referral for general surgeon and GI doctor for follow-up purposes. Patient has continued to deny any chest pain or shortness of air. Patient is in no distress at time of reevaluation. Patient was provided with clonidine 0.1mg. She will be further monitored to ensure improved BP prior to d/c. 1736: RN reports pt's BP 153/83- 71. Pt reports she is feeling better discussed IM Dicyclomine and lower BP improving sxs. Pt at this time is in no distress. Again strongly advised pt and her fiance on need for f/u in a.m. at clinic and r isks involved with ongoing HTN untreated. Axel Disclaimer Axel Disclaimer This electronic medical record was generated, in whole or in part, using a voice recognition dictation system. Departure Departure Impression: Primary Impression: Abdominal pain Additional Impression: Elevated blood pressure reading with diagnosis of hypertension Disposition: HOME, SELF-CARE Condition: STABLE Referrals: NO PCP (PCP) Patient Instructions: Abdominal Pain, Hypertension Additional Instructions: As discussed it is important for you to follow-up tomorrow with your primary doctor for reevaluation of her blood pressure and to discuss blood pressure medication options. You were evaluated for chronic abdominal pain and it is important for you to establish a gastrointestinal (GI) doctor and/or a general surgeon to further discuss your gallbladder issues and for reevaluation and further care. Scripts Dicyclomine Hcl (DICYCLOMINE HCL) 10 Mg Capsule 1 CAP PO PRN Q6HRS PRN for PAIN, #10 CAP 0 Refills Prov: RAIC RANKIN APRN 01/13/19 Problem Qualifiers ARIC RANKIN APRN January 13, 2019 15:41
[2019-01-13] MEDS ORDERED: cloNIDine HCL 0.1 MG TABLET PO ONE ×2 (15:45→17:00)
[2019-01-13] MEDS ORDERED: DICY10CA3 PO (17:12)
[2019-01-13 17:36] VITALS: BP 153/83
== END 2019-01-13 17:36 | disposition home or self-care (01) ==
LOC: ER 12:47
DX: G89.29 Other chronic pain (principal); R10.9 Unspecified abdominal pain; I10 Essential (primary) hypertension; Z98.890 Other specified postprocedural states; Z98.51 Tubal ligation status; Z88.2 Allergy status to sulfonamides
CPT/HCPCS: 36415; 80053; 81001; 81025; 83690; 85025; 87086; 99284

== ENCOUNTER 2019-07-15 17:47 | Emergency (ER) | payer SELFPAY ==
[~2019-07-15] VITALS: Ht 167.6 cm; Wt 127.0 kg
[~2019-07-15 17:47] MED LIST changes: +DICY10CA3 PO; +LISI1TAB19 PO; -LISI1TAB5 PO
[2019-07-15 18:42] VITALS: BP 171/110
[2019-07-15] MEDS ORDERED: METH4TAB2 PO (19:04)
--- NOTE | 2019-07-15 19:05 | PHYS DOC ---
Past Medical History Past Medical History: Hypertension Additional Past Medical Histor: non compliant Past Surgical History: , Tubal ligation Alcohol Use: None Drug Use: None Adult General Chief Complaint Chief Complaint: SORE THROAT HPI HPI Patient is a 48 year old Female who presents with sore throat and cough for 2 weeks, and postnasal drip. Denies fever, nasal congestion, shortness of breath, chest pain, headache, dizziness, body aches, back pain. Review of Systems Review of Systems HENT: post nasal congestion or sore throat [] Respiratory: cough or denies shortness of breath [] All other systems were reviewed and found to be within normal limits, except as documented in this note. Allergies Allergies Allergies Coded Allergies Type Severity Reaction Last Updated Verified Sulfa (Sulfonamide Antibiotics) Allergy Intermediate Hives. 05/05/16 Yes Physical Exam Physical Exam Constitutional: Well developed, well nourished, no acute distress, non-toxic appearance. [] HENT: Normocephalic, atraumatic, bilateral external ears normal, oropharynx moist, no oral exudates, nose normal. Throat is reddened with bilateral 2+ tonsil swelling without exudates.[] Eyes: PERRLA, EOMI, conjunctiva normal, no discharge. [] Neck: Normal range of motion, no tenderness, supple, no stridor. [] Cardiovascular:Heart rate regular rhythm, no murmur [] Lungs & Thorax: Bilateral breath sounds clear to auscultation [] Abdomen: Bowel sounds normal, soft, no tenderness, no masses, no pulsatile masses. [] Skin: Warm, dry, no erythema, no rash. [] Back: No tenderness, no CVA tenderness. [] Extremities: No tenderness, no cyanosis, no clubbing, ROM intact, no edema. [] Neurologic: Alert and oriented X 3, normal motor function, normal sensory function, no focal deficits noted. [] Psychologic: Affect normal, judgement normal, mood normal. [] Current Patient Data Vital Signs Vital Signs Date Time Temp Pulse Resp B/P (MAP) Pulse Ox O2 Delivery O2 Flow Rate FiO2 07/15/19 18:42 98.5 72 16 171/110 (130) 96 Room Air 98.5 EKG EKG [] Radiology/Procedures Radiology/Procedures [] Course & Med Decision Making Course & Med Decision Making Throat is reddened with bilateral tonsil 2+ swelling without exudates. Uvula is midline. Patient speaks in full clear sentences. Afebrile. No sinus tenderness. Lungs are clear to auscultation in all lobes. Alert and oriented. Ambulatory with steady gait. Skin pink warm and dry. Rapid strep is negative. Tympanic pearly white. Patient states she's not been taking any kind of [id number] medication to help her symptoms. Patient is told she needs to start using some nasal spray, vuzg-smd-jjtiqqf cold medication and ibuprofen or Tylenol to help with pain. There also throat sprays she can try to use. Dragon Disclaimer Dragon Disclaimer This electronic medical record was generated, in whole or in part, using a voice recognition dictation system. Departure Departure Impression: Primary Impression: Sore throat Disposition: 01 HOME, SELF-CARE Condition: STABLE Referrals: NO PCP (PCP) Patient Instructions: Cough, Adult, Sore Throat Additional Instructions: Follow-up with a primary care provider. Take [id number] medications to help her symptoms. Take ibuprofen or Tylenol for pain and fever. Take medication as prescribed. Drink plenty of fluids. Scripts Methylprednisolone (MEDROL) 4 Mg Tab.ds.pk 1 PKG PO UD, #1 PKG Prov: EULALIO RIBERA APRN 07/15/19 EULAILO RIBERA APRN Jul 15, 2019 19:04
== END 2019-07-15 19:11 | disposition home or self-care (01) ==
LOC: ER 17:47
DX: J02.9 Acute pharyngitis, unspecified (principal); R09.82 Postnasal drip; R05 Cough; I10 Essential (primary) hypertension; Z88.2 Allergy status to sulfonamides
CPT/HCPCS: 87070; 87880; 99284

== ENCOUNTER 2019-08-09 17:22 | Emergency (ER) | payer SELFPAY ==
[~2019-08-09] VITALS: Ht 160 cm; Wt 127.0 kg
[~2019-08-09 17:22] MED LIST changes: +METH4TAB2 PO
[2019-08-09 17:53] VITALS: BP 187/88
[2019-08-09] MEDS ORDERED: DEXAMETHASONE 4 MG TABLET PO ONE (19:15)
[2019-08-09 20:29] LABS: MONONUCLEOSIS PATIENT NEGATIVE (NEGATIVE)
--- NOTE | 2019-08-09 21:14 | PHYS DOC ---
Past Medical History Past Medical History: Hypertension Additional Past Medical Histor: non compliant Past Surgical History: , Tubal ligation Alcohol Use: None Drug Use: None Adult General Chief Complaint Chief Complaint: SORE THROAT HPI HPI Patient is a 48 year old [f__sex] who presents with [] Review of Systems Review of Systems Constitutional: Denies fever or chills [] Eyes: Denies change in visual acuity, redness, or eye pain [] HENT: Denies nasal congestion or sore throat [] Respiratory: Denies cough or shortness of breath [] Cardiovascular: No additional information not addressed in HPI [] GI: Denies abdominal pain, nausea, vomiting, bloody stools or diarrhea [] : Denies dysuria or hematuria [] Musculoskeletal: Denies back pain or joint pain [] Integument: Denies rash or skin lesions [] Neurologic: Denies headache, focal weakness or sensory changes [] Endocrine: Denies polyuria or polydipsia [] All other systems were reviewed and found to be within normal limits, except as documented in this note. Current Medications Current Medications Current Medications Medications (Trade) Dose Ordered Sig/Tristan Start Time Stop Time Status Last Admin Dose Admin Dexamethasone (Decadron) 10 mg 1X ONCE 08/09/19 19:15 08/09/19 19:16 DC 08/09/19 19:48 10 MG Allergies Allergies Allergies Coded Allergies Type Severity Reaction Last Updated Verified Sulfa (Sulfonamide Antibiotics) Allergy Intermediate Hives. 05/05/16 Yes Physical Exam Physical Exam Constitutional: Well developed, well nourished, no acute distress, non-toxic appearance. [] HENT: Normocephalic, atraumatic, bilateral external ears normal, oropharynx moist, no oral exudates, nose normal. [] Eyes: PERRLA, EOMI, conjunctiva normal, no discharge. [] Neck: Normal range of motion, no tenderness, supple, no stridor. [] Cardiovascular:Heart rate regular rhythm, no murmur [] Lungs & Thorax: Bilateral breath sounds clear to auscultation [] Abdomen: Bowel sounds normal, soft, no tenderness, no masses, no pulsatile masses. [] Skin: Warm, dry, no erythema, no rash. [] Back: No tenderness, no CVA tenderness. [] Extremities: No tenderness, no cyanosis, no clubbing, ROM intact, no edema. [] Neurologic: Alert and oriented X 3, normal motor function, normal sensory function, no focal deficits noted. [] Psychologic: Affect normal, judgement normal, mood normal. [] Current Patient Data Vital Signs Vital Signs Date Time Temp Pulse Resp B/P (MAP) Pulse Ox O2 Delivery O2 Flow Rate FiO2 08/09/19 17:53 98.4 84 16 187/88 (121) 98 Room Air 98.4 Lab Values Laboratory Tests Test 08/09/19 20:02 Heterophil Agglutinins Negative (NEGATIVE) EKG EKG [] Radiology/Procedures Radiology/Procedures [] Course & Med Decision Making Course & Med Decision Making Pertinent Labs and Imaging studies reviewed. (See chart for details) [] Dragon Disclaimer Dragon Disclaimer This electronic medical record was generated, in whole or in part, using a voice recognition dictation system. Departure Departure Impression: Primary Impression: Pharyngitis Disposition: HOME, SELF-CARE Condition: STABLE Referrals: NO PCP (PCP) BRYANNA FIGUEROA MD Patient Instructions: Viral and Bacterial Pharyngitis, [id number] Additional Instructions: Use over the counter Tylenol and Ibuprofen for pain or discomfort. May also use warm gelatin as instructed in ED. Use humidifier at night when sleeping. Use over the counter allergy medications (ie Claritin or Zyrtec) Problem Qualifiers Primary Impression: Pharyngitis Pharyngitis/tonsillitis etiology: unspecified etiology Qualified Codes: J02.9 - Acute pharyngitis, unspecified RENO DIANE DO Aug 09, 2019 21:14
== END 2019-08-09 21:16 | disposition home or self-care (01) ==
LOC: ER 17:22
DX: J02.9 Acute pharyngitis, unspecified (principal); I10 Essential (primary) hypertension; Z98.890 Other specified postprocedural states; Z98.51 Tubal ligation status; Z88.2 Allergy status to sulfonamides
CPT/HCPCS: 86308; 87070; 87880; 99284; J8540

== ENCOUNTER 2019-08-23 10:56 | Emergency (ER) | payer SELFPAY ==
[~2019-08-23] VITALS: Ht 162.6 cm; Wt 127.0 kg
[2019-08-23 11:35] VITALS: BP 163/92
[2019-08-23] MEDS ORDERED: methylPREDNISolone SOD SUCC PF 125 MG/2 ML VIAL. IM ONE (11:45)
[2019-08-23] MEDS ORDERED: IBUPROFEN 200 MG TABLET. PO ONE (11:45)
--- NOTE | 2019-08-23 12:06 | PHYS DOC ---
Past Medical History Past Medical History: Hypertension Additional Past Medical Histor: non compliant Past Surgical History: , Tubal ligation Alcohol Use: None Drug Use: None Adult General Chief Complaint Chief Complaint: SORE THROAT HPI HPI Patient is a 49 year old female who presents with cough and sore throat for the last 2 days. Patient states she'll be coughing so hard that she becomes dizzy and has some shortness of air. She is rating her pain 8 out of 10. She states she has not taken anything for her symptoms today. Review of Systems Review of Systems HENT: Denies nasal congestion. +sore throat [] Respiratory: cough or shortness of breath [] All other systems were reviewed and found to be within normal limits, except as documented in this note. Current Medications Current Medications Current Medications Medications (Trade) Dose Ordered Sig/Tristan Start Time Stop Time Status Last Admin Dose Admin Ibuprofen (Motrin) 600 mg 1X ONCE 08/23/19 11:45 08/23/19 11:46 DC 08/23/19 11:50 600 MG Methylprednisolone Sodium Succinate (SOLU-Medrol 125MG VIAL) 62.5 mg 1X ONCE 08/23/19 11:45 08/23/19 11:46 DC 08/23/19 11:50 62.5 MG Allergies Allergies Allergies Coded Allergies Type Severity Reaction Last Updated Verified Sulfa (Sulfonamide Antibiotics) Allergy Intermediate Hives. 05/05/16 Yes Physical Exam Physical Exam Constitutional: Well developed, well nourished, no acute distress, non-toxic appearance. [] HENT: Normocephalic, atraumatic, bilateral external ears normal, oropharynx moist, no oral exudates, nose normal. Tonsils bilaterally 2+ with redness and exudates.[] Eyes: PERRLA, EOMI, conjunctiva normal, no discharge. [] Neck: Normal range of motion, no tenderness, supple, no stridor. [] Cardiovascular:Heart rate regular rhythm, no murmur [] Lungs & Thorax: Upper Bilateral breath sounds clear and lower diminished to auscultation [] Abdomen: Bowel sounds normal, soft, no tenderness, no masses, no pulsatile masses. [] Skin: Warm, dry, no erythema, no rash. [] Back: No tenderness, no CVA tenderness. [] Extremities: No tenderness, no cyanosis, no clubbing, ROM intact, no edema. [] Neurologic: Alert and oriented X 3, normal motor function, normal sensory function, no focal deficits noted. [] Psychologic: Affect normal, judgement normal, mood normal. [] Current Patient Data Vital Signs Vital Signs Date Time Temp Pulse Resp B/P (MAP) Pulse Ox O2 Delivery O2 Flow Rate FiO2 08/23/19 11:35 99.9 116 18 163/92 (115) 95 Room Air 99.9 Lab Values Laboratory Tests Test 08/23/19 11:31 Influenza Type A Antigen Negative (NEGATIVE) Influenza Type B Antigen Negative (NEGATIVE) Group A Streptococcus Rapid Negative (NEGATIVE) EKG EKG [] Radiology/Procedures Radiology/Procedures [] Impressions: [facility] [address] [place], [place] [id number] IMAGING REPORT Signed PATIENT: CLINTON TERAN ACCOUNT: [id number] : 1970 LOCATION: ER AGE: 49 SEX: F EXAM STATUS: REG ER ORD. PHYSICIAN: EULALIO RIBERA APRN REASON: cough, soa PROCEDURE: CHEST PA & LATERAL CHEST PA LATERAL History: Cough, shortness of air Comparison: May 05, 2018 Findings: 2 views of the chest are submitted. There is no lobar infiltrate, pneumothorax, or effusion. Pericardial cardiac silhouette is within normal limits in size. Impression: 1. There is no radiographic evidence of acute cardiopulmonary disease. Electronically signed by: Matthias Gil MD (08/23/2019 12:17 PM) [facility] DICTATED and SIGNED BY: MATTHIAS GIL MD DATE: 08/23/19 1217 Course & Med Decision Making Course & Med Decision Making Lungs are clear in upper lobes and diminished in lower lobes. Speaks in full c lear sentences. Patient states she is eating and drinking appropriately and can swallow appropriately. Throat is reddened with 2+ swelling and exudates. Uvula midline. Abdomen is soft and non-tender. Vital signs within normal limits. Ambulatory with a steady gait. Patient is given Solu-Medrol and ibuprofen in the emergency room. Patient has a history of hypertension. Denies numbness or tingling, chest pain, visual changes, weakness, abdominal pain, nausea, vomiting, diarrhea, fever, neck pain. Dragon Disclaimer Dragon Disclaimer This electronic medical record was generated, in whole or in part, using a voice recognition dictation system. Departure Departure Impression: Primary Impression: Strep throat Additional Impression: Cough Disposition: 01 HOME, SELF-CARE Condition: STABLE Referrals: NO PCP (PCP) Patient Instructions: Cough, Adult, Strep Throat Additional Instructions: Follow up with primary care provider. Begin taking the steroid tomorrow. Take Ibuprofen for pain. Scripts Amoxicillin/Potassium Clav (AUGMENTIN 875-125 TABLET) 1 Each Tablet 1 TAB PO BID for 10 Days, #20 TAB 0 Refills Prov: EULALIO RIBERA APRN 08/23/19 Methylprednisolone (MEDROL) 4 Mg Tab.ds.pk 1 PKG PO UD, #1 PKG Prov: EULALIO RIBERA APRN 08/23/19 Problem Qualifiers EULALIO RIBERA APRN Aug 23, 2019 12:06
[2019-08-23 12:17] LABS: INFLUENZA A PATIENT NEGATIVE (NEGATIVE); INFLUENZA B PATIENT NEGATIVE (NEGATIVE)
--- NOTE | 2019-08-23 12:20 | RAD ---
CHEST PA LATERAL History: Cough, shortness of air Comparison: May 05, 2018 Findings: 2 views of the chest are submitted. There is no lobar infiltrate, pneumothorax, or effusion. Pericardial cardiac silhouette is within normal limits in size. Impression: 1. There is no radiographic evidence of acute cardiopulmonary disease. Electronically signed by: Gen Rojas MD (08/23/2019 12:17 PM) [facility]
[2019-08-23] MEDS ORDERED: METH4TAB2 PO (12:23)
[2019-08-23] MEDS ORDERED: AMOX1TAB61 PO (12:23)
== END 2019-08-23 12:56 | disposition home or self-care (01) ==
LOC: ER 10:56
DX: J02.0 Streptococcal pharyngitis (principal); B95.5 Unspecified streptococcus as the cause of diseases classified elsewhere; R05 Cough; I10 Essential (primary) hypertension; Z98.51 Tubal ligation status; Z98.890 Other specified postprocedural states; Z88.2 Allergy status to sulfonamides
CPT/HCPCS: 71046; 87070; 87804; 87880; 96372; 99285; J2930

== ENCOUNTER 2019-09-08 20:57 | Inpatient (IN) | payer SELFPAY ==
[~2019-09-08] VITALS: Ht 160 cm; Wt 136.1 kg
[~2019-09-08 20:57] MED LIST changes: +AMOX1TAB61 PO
[2019-09-08 21:42] LABS: BASO % 0 % (0-3); EOS % 0 % (0-3); HEMATOCRIT 42.1 % (36.0-47.0); HEMOGLOBIN 13.7 g/dL (12.0-15.5); LYMPH # 1.2 x10^3/uL (1.0-4.8); LYMPH % 13 % (24-48); MEAN CORPUSCULAR HEMOGLOBIN 25 pg (25-35); MEAN CORPUSCULAR HGB CONC 33 g/dL (31-37); MEAN CORPUSCULAR VOLUME 77 fL (79-100); MONO # 0.3 x10^3/uL (0.0-1.1); MONO % 3 % (0-9); NEUT # 7.7 x10^3/uL (1.8-7.7); NEUT % 83 % (31-73); PLATELET COUNT 300 x10^3/uL (140-400); RED BLOOD COUNT 5.45 x10^6/uL (3.50-5.40); RED CELL DISTRIBUTION WIDTH 17.1 % (11.5-14.5); WHITE BLOOD COUNT 9.3 x10^3/uL (4.0-11.0)
[2019-09-08 21:42] LABS: BILIRUBIN,URINE NEGATIVE (NEG); CLARITY,URINE CLOUDY; COLOR,URINE YELLOW; NITRITE,URINE NEGATIVE (NEG); PH,URINE 8.5; PROTEIN,URINE NEGATIVE (NEG-TRACE); UROBILINOGEN,URINE 0.2 mg/dL (0.2 mg/dL)
[2019-09-08] MEDS: fentaNYL PF VIAL 100 MCG/2 ML VIAL IV PRN (21:43)
[2019-09-08] MEDS ORDERED: IV NORMAL SALINE 1000ML BAG 1,000 ML IV SCH (21:45)
[2019-09-08] MEDS ORDERED: ONDANSETRON PF 4 MG/2 ML VIAL. IV ONE (21:45)
[2019-09-08 21:49] LABS: AMORPHOUS SEDIMENT,UR PRESENT /HPF; BACTERIA,URINE 0 /HPF (0-FEW); SQUAMOUS EPITHELIAL CELL,UR FEW /LPF; WBC,URINE 0 /HPF (0-4)
--- NOTE | 2019-09-08 21:57 | PHYS DOC ---
Past Medical History Past Medical History: Hypertension Additional Past Medical Histor: non compliant Past Surgical History: , Tubal ligation Alcohol Use: None Drug Use: None Adult General Chief Complaint Chief Complaint: ABDOMINAL PAIN HPI HPI 49-year-old female presents to the emergency department with complaints of abdominal pain. Patient has underlying history of hypertension, history of gallbladder stones. Patient states her pain is in the epigastric region, she describes as dull, she states started approximately 3:57 PM today. She denies any diarrhea, nausea, dysuria, she does describe vomiting. Nothing makes her symptoms worse nothing makes her symptoms better. She denies any headache, visual change, chest pain, shortness of breath, fever. Review of Systems Review of Systems Constitutional: Denies fever or chills [] Respiratory: Denies cough or shortness of breath [] Cardiovascular: No additional information not addressed in HPI [] GI: As of epigastric pain, no nausea, + vomiting, no bloody stools or diarrhea [] : Denies dysuria or hematuria [] Musculoskeletal: Denies back pain or joint pain [] Integument: Denies rash or skin lesions [] Neurologic: Denies headache, focal weakness or sensory changes [] All other systems were reviewed and found to be within normal limits, except as documented in this note. Current Medications Current Medications Current Medications Medications (Trade) Dose Ordered Sig/[facility] Start Time Stop Time Status Last Admin Dose Admin Fentanyl Citrate (Fentanyl 2ml Vial) 50 mcg PRN Q15MIN PRN 09/08/19 21:45 09/09/19 21:44 09/09/19 00:50 50 MCG Hydralazine HCl (Apresoline Inj) 10 mg 1X ONCE 09/09/19 00:30 09/09/19 00:31 DC 09/09/19 00:49 10 MG Hydromorphone HCl (Dilaudid) 1 mg 1X ONCE 09/09/19 00:30 09/09/19 00:31 DC Ondansetron HCl (Zofran) 4 mg 1X ONCE 09/08/19 21:45 09/08/19 21:46 DC 09/08/19 21:43 4 MG Piperacillin Sod/ Tazobactam Sod 3.375 gm/Sodium Chloride 50 ml @ 100 mls/hr 1X ONCE 09/09/19 00:30 09/09/19 00:59 DC 09/09/19 00:50 100 MLS/HR Sodium Chloride 1,000 ml @ 1,000 mls/hr Q1H 09/08/19 21:45 09/08/19 22:44 DC 09/08/19 21:43 1,000 MLS/HR Allergies Allergies Allergies Coded Allergies Type Severity Reaction Last Updated Verified Sulfa (Sulfonamide Antibiotics) Allergy Intermediate Hives. 05/05/16 Yes Physical Exam Physical Exam Constitutional: Well developed, well nourished, distress secondary to pain, non- toxic appearance. [] HENT: Normocephalic, atraumatic, bilateral external ears normal, oropharynx moist, no oral exudates, nose normal. [] Eyes: PERRLA, EOMI, conjunctiva normal, no discharge. [] Cardiovascular:Heart rate regular rhythm, no murmur [] Lungs & Thorax: Bilateral breath sounds clear to auscultation [] Abdomen: Epigastric tenderness, no right upper quadrant tenderness on examination no Stevens sign appreciated, no pulsatile mass[] Skin: Warm, dry, no erythema, no rash. [] Back: No tenderness, no CVA tenderness. [] Extremities: No tenderness, no edema. [] Neurologic: Alert and oriented X 3, no focal deficits noted. [] Psychologic: Affect normal, judgement normal, mood normal. [] Current Patient Data Vital Signs Vital Signs Date Time Temp Pulse Resp B/P (MAP) Pulse Ox O2 Delivery O2 Flow Rate FiO2 09/09/19 00:50 Room Air 09/09/19 00:49 98 209/119 09/08/19 23:38 17 99 09/08/19 21:00 98.7 98.7 Lab Values Laboratory Tests Test 09/08/19 21:05 09/08/19 21:15 09/08/19 21:50 Urine Collection Type Unknown Urine Color Yellow Urine Clarity Cloudy Urine pH 8.5 Urine Specific [place] 1.020 Urine Protein Negative mg/dL (NEG-TRACE) Urine Glucose (UA) Negative mg/dL (NEG) Urine Ketones (Stick) Negative mg/dL (NEG) Urine Blood Small (NEG) Urine Nitrite Negative (NEG) Urine Bilirubin Negative (NEG) Urine Urobilinogen Dipstick 0.2 mg/dL (0.2 mg/dL) Urine Leukocyte Esterase Negative (NEG) Urine RBC 1-2 /HPF (0-2) Urine WBC 0 /HPF (0-4) Urine Squamous Epithelial Cells Few /LPF Urine Amorphous Sediment Present /HPF Urine Bacteria 0 /HPF (0-FEW) Urine Mucus Slight /LPF White Blood Count 9.3 x10^3/uL (4.0-11.0) Red Blood Count 5.45 x10^6/uL (3.50-5.40) H Hemoglobin 13.7 g/dL (12.0-15.5) Hematocrit 42.1 % (36.0-47.0) Mean Corpuscular Volume 77 fL (79-100) L Mean Corpuscular Hemoglobin 25 pg (25-35) Mean Corpuscular Hemoglobin Concent 33 g/dL (31-37) Red Cell Distribution Width 17.1 % (11.5-14.5) H Platelet Count 300 x10^3/uL (140-400) Neutrophils (%) (Auto) 83 % (31-73) H Lymphocytes (%) (Auto) 13 % (24-48) L Monocytes (%) (Auto) 3 % (0-9) Eosinophils (%) (Auto) 0 % (0-3) Basophils (%) (Auto) 0 % (0-3) Neutrophils # (Auto) 7.7 x10^3/uL (1.8-7.7) Lymphocytes # (Auto) 1.2 x10^3/uL (1.0-4.8) Monocytes # (Auto) 0.3 x10^3/uL (0.0-1.1) Eosinophils # (Auto) 0.0 x10^3/uL (0.0-0.7) Basophils # (Auto) 0.0 x10^3/uL (0.0-0.2) Sodium Level 134 mmol/L (136-145) L Potassium Level 3.5 mmol/L (3.5-5.1) Chloride Level 99 mmol/L (98-107) Carbon Dioxide Level 28 mmol/L (21-32) Anion Gap 7 (6-14) Blood Urea Nitrogen 8 mg/dL (7-20) Creatinine 0.8 mg/dL (0.6-1.0) Estimated GFR (Cockcroft-Gault) 91.9 BUN/Creatinine Ratio 10 (6-20) Glucose Level 161 mg/dL (70-99) H Calcium Level 9.7 mg/dL (8.5-10.1) Total Bilirubin 1.1 mg/dL (0.2-1.0) H Aspartate Amino Transferase (AST) 16 U/L (15-37) Alanine Aminotransferase (ALT) 11 U/L (14-59) L Alkaline Phosphatase 103 U/L (46-116) Troponin I Quantitative < 0.017 ng/mL (0.000-0.055) Total Protein 7.7 g/dL (6.4-8.2) Albumin 3.5 g/dL (3.4-5.0) Albumin/Globulin Ratio 0.8 (1.0-1.7) L Lipase 85 U/L (73-393) Laboratory Tests 09/08/19 21:15 Laboratory Tests 09/08/19 21:50 EKG EKG EKG reviewed, interpretation time 6 no evidence of STEMI, heart rate 82, left axis deviation, normal sinus rhythm[] Radiology/Procedures Radiology/Procedures [facility] [address] [place], [place] [id number] IMAGING REPORT Signed PATIENT: CLINTON TERAN ACCOUNT: [id number] : 1970 LOCATION: ER AGE: 49 SEX: F EXAM STATUS: REG ER ORD. PHYSICIAN: LINDSEY JANG MD REASON: epigastric, ruq pain PROCEDURE: ABDOMEN LTD STUDY: Realtime grayscale and color Doppler ultrasonography of the right upper quadrant INDICATION: Epigastric and right upper quadrant pain. COMPARISON: Correlation is made to the CT abdomen/pelvis from 05/05/2018. Findings: The study is made difficult by body habitus. The pancreas is not well visualized. The visualized portion of the pancreas is somewhat echogenic. Increased hepatic echogenicity. Patent main portal vein. Common bile duct caliber is within normal limits at 0.5 cm. The right kidney measures 11.3 cm in length without hydronephrosis. Shadowing gallstones are present. Mild gallbladder wall thickening. Impression: 1. Shadowing gallstones within the gallbladder and mild gallbladder wall thickening. Though no sonographic Stevens's sign was observed by the business systems technician, cholecystitis is a consideration. As clinically indicated, biliary scintigraphy could be performed. 2. Within normal limits common bile duct caliber at 0.5 cm. No choledocholithiasis visualized though portions of the pancreatic duct are not well evaluated due to body habitus. 3. Incompletely evaluated pancreas. 4. No sonographic abnormality of the right kidney. 5. Increased hepatic echogenicity suggestive of hepatic steatosis. Electronically signed by: DAMIAN OSORIO MD (09/09/2019 1:18 AM) [facility] DICTATED and SIGNED BY: DAMIAN OSORIO MD DATE: 09/09/19 0118 [] Course & Med Decision Making Course & Med Decision Making Pertinent Labs and Imaging studies reviewed. (See chart for details) []49-year-old female presents to the emergency department with complaints of abdominal pain. Patient has underlying history of hypertension, history of gallbladder stones. Patient states her pain is in the epigastric region, she describes as dull, she states started approximately 3:57 PM today. She denies any diarrhea, nausea, dysuria, she does describe vomiting. Nothing makes her symptoms worse nothing makes her symptoms better. She denies any headache, visu al change, chest pain, shortness of breath, fever. Labs reviewed Zosyn IV given in the ER Fentanyl/Zofran provided without relief Dilaudid 1mg IV with improved pain US reviewed, GB wall thickening, gallstones appreciated Given intractable pain will admit with further Surgery consultation Dragon Disclaimer Dragon Disclaimer This electronic medical record was generated, in whole or in part, using a voice recognition dictation system. Departure Departure Impression: Primary Impression: Abdominal pain Additional Impression: Cholelithiases Disposition: 09 ADMITTED INPATIENT Admitting Physician: LEE Condition: STABLE Referrals: NO PCP (PCP) Problem Qualifiers Primary Impression: Abdominal pain Abdominal location: unspecified location Qualified Codes: R10.9 - Unspecified abdominal pain Additional Impression: Cholelithiases Cholelithiasis location: other site Biliary obstruction: without biliary obstruction Qualified Codes: K80.80 - Other cholelithiasis without obstruction LINDSEY JANG MD Sep 08, 2019 21:57
[2019-09-08 22:05] LABS: CALCIUM 9.7 mg/dL (8.5-10.1); CREATININE 0.8 mg/dL (0.6-1.0); GFR 91.9; POTASSIUM 3.5 mmol/L (3.5-5.1)
[2019-09-08 22:11] LABS: ALBUMIN 3.5 g/dL (3.4-5.0); ALBUMIN/GLOBULIN RATIO 0.8 (1.0-1.7); TOTAL BILIRUBIN 1.1 mg/dL (0.2-1.0); TOTAL PROTEIN 7.7 g/dL (6.4-8.2)
[2019-09-09] VITALS (7 sets, daily range): BP systolic 139–197; BP diastolic 77–114
[2019-09-09] MEDS ORDERED: HYDROmorphone 2 MG/ML VIAL IV ONE ×3 (00:30→11:15)
[2019-09-09] MEDS ORDERED: hydrALAZINE 20 MG/ML VIAL. IVP ONE (00:30)
[2019-09-09] MEDS ORDERED: PIPERACILLIN/TAZOBACTAM 3.375 GM in IV NORMAL SALINE 50ML 50 ML IV ONE (00:30)
[2019-09-09] MEDS: fentaNYL PF VIAL 100 MCG/2 ML VIAL IV PRN (00:50)
--- NOTE | 2019-09-09 01:21 | RAD ---
STUDY: Realtime grayscale and color Doppler ultrasonography of the right upper quadrant INDICATION: Epigastric and right upper quadrant pain. COMPARISON: Correlation is made to the CT abdomen/pelvis from 05/05/2018. Findings: The study is made difficult by body habitus. The pancreas is not well visualized. The visualized portion of the pancreas is somewhat echogenic. Increased hepatic echogenicity. Patent main portal vein. Common bile duct caliber is within normal limits at 0.5 cm. The right kidney measures 11.3 cm in length without hydronephrosis. Shadowing gallstones are present. Mild gallbladder wall thickening. Impression: 1. Shadowing gallstones within the gallbladder and mild gallbladder wall thickening. Though no sonographic Stevens's sign was observed by the clinical laboratory technician, cholecystitis is a consideration. As clinically indicated, biliary scintigraphy could be performed. 2. Within normal limits common bile duct caliber at 0.5 cm. No choledocholithiasis visualized though portions of the pancreatic duct are not well evaluated due to body habitus. 3. Incompletely evaluated pancreas. 4. No sonographic abnormality of the right kidney. 5. Increased hepatic echogenicity suggestive of hepatic steatosis. Electronically signed by: DAMIAN OSORIO MD (09/09/2019 1:18 AM) [facility]
[2019-09-09] MEDS ORDERED: ONDANSETRON PF 4 MG/2 ML VIAL. IV PRN (01:30)
--- NOTE | 2019-09-09 02:20 | NUR ---
The patient, CLINTON TERAN, 49 y/o, F admitted by JOSE CASTRO MD, was given written information regarding hospital policies, unit procedures and contact persons. Valuables were checked and left in the room.
[2019-09-09] MEDS ORDERED: oxyCODONE/APAP 5/325 1 TAB TABLET PO PRN (02:45)
--- NOTE | 2019-09-09 07:55 | EKG ---
[facility] [address] [place] [id number] Test Date: 2019-09-08 Test Time: 21:48:59 Pat Name: CLINTON TERAN Department: Room: Gender: F Acute Care Clinical Nurse Specialist: : 1970 Requested By: LINDSEY JANG Order Number: [id number] Reading MD: Measurements Intervals [place] Rate: 82 P: 25 AK: 166 QRS: -1 QRSD: 78 T: 52 QT: 370 QTc: 435 Interpretive Statements SINUS RHYTHM LEFTWARD AXIS R-S TRANSITION ZONE IN V LEADS DISPLACED TO THE LEFT NO SPECIFIC ECG ABNORMALITIES RI6.01 No previous ECG available for comparison
[2019-09-09] MEDS ORDERED: KETOROLAC 30 MG/ML VIAL. IVP ONE (08:30)
--- NOTE | 2019-09-09 08:30 | PDOC2 ---
CONSULT Date of Consult Date of Consult DATE: 09/09/19 TIME: 08:27 Reason for Consult Reason for Consult: Abdominal pain Referring Physician Referring Physician: Oj Identification/Chief Complaint Chief Complaint Abdominal pain right upper quadrant radiating to her back Source Source: Chart review, Patient History of Present Illness Reason for Visit: 49-year-old female morbidly obese with complaints of right upper quadrant abdominal pain nausea and occasional vomiting pain she states radiates to her back and is unrelenting. Ultrasound done within the emergency department evaluation showed gallstones mild thickened gallbladder wall consistent with acute cholecystitis Past Medical History Cardiovascular: No pertinent hx Pulmonary: No pertinent hx GI: No pertinent hx Heme/Onc: No pertinent hx Hepatobiliary: No pertinent hx Psych: No pertinent hx Rheumatologic: No pertinent hx Infectious disease: No pertinent hx ENT: No pertinent hx Renal/: No pertinent hx Endocrine: No pertinent hx Dermatology: No pertinent hx Past Surgical History Past Surgical History: No pertinent history Current Problem List Problem List Problems Medical Problems: (1) Abdominal pain Status: Acute (2) Cholelithiases Status: Acute Current Medications Current Medications Current Medications Fentanyl Citrate (Fentanyl 2ml Vial) 50 mcg PRN Q15MIN PRN IV PAIN GREATER THAN 3/10 Last administered on 09/09/19at 00:50; Start 09/08/19 at 21:45; Stop 09/09/19 at 21:44 Sodium Chloride 1,000 ml @ 1,000 mls/hr Q1H IV Last administered on 09/08/19at 21:43; Start 09/08/19 at 21:45; Stop 09/08/19 at 22:44; Status DC Ondansetron HCl (Zofran) 4 mg 1X ONCE IV Last administered on 09/08/19at 21:43; Start 09/08/19 at 21:45; Stop 09/08/19 at 21:46; Status DC Hydromorphone HCl (Dilaudid) 1 mg 1X ONCE IV Last administered on 09/09/19at 02:13; Start 09/09/19 at 00:30; Stop 09/09/19 at 00:31; Status DC Piperacillin Sod/ Tazobactam Sod 3.375 gm/Sodium Chloride 50 ml @ 100 mls/hr 1X ONCE IV Last administered on 09/09/19at 00:50; Start 09/09/19 at 00:30; Stop 09/09/19 at 00:59; Status DC Hydralazine HCl (Apresoline Inj) 10 mg 1X ONCE IVP Last administered on 09/09/19at 00:49; Start 09/09/19 at 00:30; Stop 09/09/19 at 00:31; Status DC Ondansetron HCl (Zofran) 4 mg PRN Q8HRS PRN IV NAUSEA/VOMITING; Start 09/09/19 at 01:30; Stop 09/10/19 at 01:29 Oxycodone/ Acetaminophen (Percocet 5/325) 1 tab PRN Q6HRS PRN PO PAIN Last administered on 09/09/19at 06:04; Start 09/09/19 at 02:45 Hydromorphone HCl (Dilaudid) 1 mg 1X ONCE IV ; Start 09/09/19 at 08:30; Stop 09/09/19 at 08:31 Ketorolac Tromethamine (Toradol 30mg Vial) 30 mg 1X ONCE IVP ; Start 09/09/19 at 08:30; Stop 09/09/19 at 08:31 Active Scripts Active Augmentin 875-125 Tablet (Amoxicillin/Potassium Clav) 1 Each Tablet 1 Tab PO BID 10 Days Medrol (Methylprednisolone) 4 Mg Tab.ds.pk 1 Pkg PO UD Medrol (Methylprednisolone) 4 Mg Tab.ds.pk 1 Pkg PO UD Dicyclomine Hcl 10 Mg Capsule 1 Cap PO PRN Q6HRS PRN Compton 5-325 Tablet (Acetaminophen/Hydrocodone Bitart) 1 Each Tablet 1 Tab PO PRN Q6HRS PRN Pepcid (Famotidine) 20 Mg Tablet 20 Mg PO HS Zofran (Ondansetron Hcl) 4 Mg Tablet 1 Tab PO Q8HRS PRN Naproxen 500 Mg Tablet 1 Tab PO BID Cyclobenzaprine Hcl 10 Mg Tablet 1 Tab PO TID PRN Amoxicillin 500 Mg Capsule 1 Cap PO BID Prednisone 20 Mg Tablet 40 Mg PO DAILY Cyclobenzaprine Hcl 10 Mg Tablet 10 Mg PO TID Compton 5-325 Tablet (Acetaminophen/Hydrocodone Bitart) 1 Each Tablet 1 Tab PO PRN Q6HRS PRN Flagyl (Metronidazole) 500 Mg Tablet 1 Tab PO BID Reported Lisinopril-Hctz 20-12.5 Mg Tab (Lisinopril/Hydrochlorothiazide) 1 Each Tablet 1 Tab PO DAILY Allergies Allergies: Coded Allergies: Sulfa (Sulfonamide Antibiotics) (Verified Allergy, Intermediate, Hives., 05/05/16) ROS Gastrointestinal: Yes Nausea, Yes Vomiting, Yes Abdominal Pain Physical Exam General: Alert, Oriented X3, Cooperative, moderate distress, Other (morbidly obese) HEENT: Atraumatic, PERRLA, EOMI Lungs: Clear to auscultation, Normal air movement Heart: Regular rate, No murmurs Abdomen: Normal bowel sounds, Soft, Other (tender to palpation right upper quadrant) Extremities: No edema Skin: No significant lesion Neuro: Normal speech Psych/Mental Status: Mental status NL Vitals VITALS Vital Signs Date Time Temp Pulse Resp B/P (MAP) Pulse Ox O2 Delivery O2 Flow Rate FiO2 09/09/19 06:04 100 Room Air 09/09/19 03:12 98.0 89 20 139/77 (97) 98.0 Labs Labs Laboratory Tests Test 09/08/19 21:05 09/08/19 21:15 09/08/19 21:50 Urine Collection Type Unknown Urine Color Yellow Urine Clarity Cloudy Urine pH 8.5 Urine Specific [place] 1.020 Urine Protein Negative mg/dL (NEG-TRACE) Urine Glucose (UA) Negative mg/dL (NEG) Urine Ketones (Stick) Negative mg/dL (NEG) Urine Blood Small (NEG) Urine Nitrite Negative (NEG) Urine Bilirubin Negative (NEG) Urine Urobilinogen Dipstick 0.2 mg/dL (0.2 mg/dL) Urine Leukocyte Esterase Negative (NEG) Urine RBC 1-2 /HPF (0-2) Urine WBC 0 /HPF (0-4) Urine Squamous Epithelial Cells Few /LPF Urine Amorphous Sediment Present /HPF Urine Bacteria 0 /HPF (0-FEW) Urine Mucus Slight /LPF White Blood Count 9.3 x10^3/uL (4.0-11.0) Red Blood Count 5.45 x10^6/uL (3.50-5.40) Hemoglobin 13.7 g/dL (12.0-15.5) Hematocrit 42.1 % (36.0-47.0) Mean Corpuscular Volume 77 fL (79-100) Mean Corpuscular Hemoglobin 25 pg (25-35) Mean Corpuscular Hemoglobin Concent 33 g/dL (31-37) Red Cell Distribution Width 17.1 % (11.5-14.5) Platelet Count 300 x10^3/uL (140-400) Neutrophils (%) (Auto) 83 % (31-73) Lymphocytes (%) (Auto) 13 % (24-48) Monocytes (%) (Auto) 3 % (0-9) Eosinophils (%) (Auto) 0 % (0-3) Basophils (%) (Auto) 0 % (0-3) Neutrophils # (Auto) 7.7 x10^3/uL (1.8-7.7) Lymphocytes # (Auto) 1.2 x10^3/uL (1.0-4.8) Monocytes # (Auto) 0.3 x10^3/uL (0.0-1.1) Eosinophils # (Auto) 0.0 x10^3/uL (0.0-0.7) Basophils # (Auto) 0.0 x10^3/uL (0.0-0.2) Sodium Level 134 mmol/L (136-145) Potassium Level 3.5 mmol/L (3.5-5.1) Chloride Level 99 mmol/L (98-107) Carbon Dioxide Level 28 mmol/L (21-32) Anion Gap 7 (6-14) Blood Urea Nitrogen 8 mg/dL (7-20) Creatinine 0.8 mg/dL (0.6-1.0) Estimated GFR (Cockcroft-Gault) 91.9 BUN/Creatinine Ratio 10 (6-20) Glucose Level 161 mg/dL (70-99) Calcium Level 9.7 mg/dL (8.5-10.1) Total Bilirubin 1.1 mg/dL (0.2-1.0) Aspartate Amino Transf (AST/SGOT) 16 U/L (15-37) Alanine Aminotransferase (ALT/SGPT) 11 U/L (14-59) Alkaline Phosphatase 103 U/L (46-116) Troponin I Quantitative < 0.017 ng/mL (0.000-0.055) Total Protein 7.7 g/dL (6.4-8.2) Albumin 3.5 g/dL (3.4-5.0) Albumin/Globulin Ratio 0.8 (1.0-1.7) Lipase 85 U/L (73-393) Laboratory Tests Test 09/08/19 21:05 09/08/19 21:15 09/08/19 21:50 Urine Collection Type Unknown Urine Color Yellow Urine Clarity Cloudy Urine pH 8.5 Urine Specific [place] 1.020 Urine Protein Negative mg/dL (NEG-TRACE) Urine Glucose (UA) Negative mg/dL (NEG) Urine Ketones (Stick) Negative mg/dL (NEG) Urine Blood Small (NEG) Urine Nitrite Negative (NEG) Urine Bilirubin Negative (NEG) Urine Urobilinogen Dipstick 0.2 mg/dL (0.2 mg/dL) Urine Leukocyte Esterase Negative (NEG) Urine RBC 1-2 /HPF (0-2) Urine WBC 0 /HPF (0-4) Urine Squamous Epithelial Cells Few /LPF Urine Amorphous Sediment Present /HPF Urine Bacteria 0 /HPF (0-FEW) Urine Mucus Slight /LPF White Blood Count 9.3 x10^3/uL (4.0-11.0) Red Blood Count 5.45 x10^6/uL (3.50-5.40) Hemoglobin 13.7 g/dL (12.0-15.5) Hematocrit 42.1 % (36.0-47.0) Mean Corpuscular Volume 77 fL (79-100) Mean Corpuscular Hemoglobin 25 pg (25-35) Mean Corpuscular Hemoglobin Concent 33 g/dL (31-37) Red Cell Distribution Width 17.1 % (11.5-14.5) Platelet Count 300 x10^3/uL (140-400) Neutrophils (%) (Auto) 83 % (31-73) Lymphocytes (%) (Auto) 13 % (24-48) Monocytes (%) (Auto) 3 % (0-9) Eosinophils (%) (Auto) 0 % (0-3) Basophils (%) (Auto) 0 % (0-3) Neutrophils # (Auto) 7.7 x10^3/uL (1.8-7.7) Lymphocytes # (Auto) 1.2 x10^3/uL (1.0-4.8) Monocytes # (Auto) 0.3 x10^3/uL (0.0-1.1) Eosinophils # (Auto) 0.0 x10^3/uL (0.0-0.7) Basophils # (Auto) 0.0 x10^3/uL (0.0-0.2) Sodium Level 134 mmol/L (136-145) Potassium Level 3.5 mmol/L (3.5-5.1) Chloride Level 99 mmol/L (98-107) Carbon Dioxide Level 28 mmol/L (21-32) Anion Gap 7 (6-14) Blood Urea Nitrogen 8 mg/dL (7-20) Creatinine 0.8 mg/dL (0.6-1.0) Estimated GFR (Cockcroft-Gault) 91.9 BUN/Creatinine Ratio 10 (6-20) Glucose Level 161 mg/dL (70-99) Calcium Level 9.7 mg/dL (8.5-10.1) Total Bilirubin 1.1 mg/dL (0.2-1.0) Aspartate Amino Transf (AST/SGOT) 16 U/L (15-37) Alanine Aminotransferase (ALT/SGPT) 11 U/L (14-59) Alkaline Phosphatase 103 U/L (46-116) Troponin I Quantitative < 0.017 ng/mL (0.000-0.055) Total Protein 7.7 g/dL (6.4-8.2) Albumin 3.5 g/dL (3.4-5.0) Albumin/Globulin Ratio 0.8 (1.0-1.7) Lipase 85 U/L (73-393) Assessment/Plan Assessment/Plan Acute cholecystitis plan laparoscopic cholecystectomy 09/10 8 AM PARUL CATHERINE MD Sep 09, 2019 08:30
[2019-09-09] MEDS ORDERED: HYDROmorphone 2 MG/ML VIAL IV PRN (11:15)
[2019-09-09] MEDS: HYDROmorphone 2 MG/ML VIAL IV PRN ×6 (11:23→23:55)
[2019-09-09] MEDS ORDERED: LOSA100T14 PO (11:31)
[2019-09-09] MEDS: LOSARTAN POTASSIUM 50 MG TABLET. PO SCH (11:44)
--- NOTE | 2019-09-09 11:46 | NUR ---
This RN notified Dr. Mcwilliams in person this am about pt's BP of 185/114. Orders received to restart home BP meds. Will restart home meds and monitor this pt.
--- NOTE | 2019-09-09 11:47 | NUR ---
Pt's most recent BP 197/106. Dr. Mcwilliams notified by this RN. Orders received to recheck BP after Losartan 100 mg PO daily is administered and start Norvasc 10 mg PO daily if BP is unaffected.
--- NOTE | 2019-09-09 13:17 | NUR ---
Pt's current BP 191/113. This RN notified Dr. Mcwilliams. Orders to start Norvasc 10 mg PO daily. Will continue to monitor pt.
[2019-09-09] MEDS: amLODIPine BESYLATE 10 MG TABLET PO SCH (14:15)
[2019-09-09] MEDS: PIPERACILLIN/TAZOBACTAM 3.375 GM in IV NORMAL SALINE 50ML 50 ML IV SCH ×2 (17:40→21:51)
[2019-09-09] MEDS ORDERED: BUPIVACAINE-EPI 0.25%-1:200000 MPF 30 ML VIAL. INJ ONE (17:45)
--- NOTE | 2019-09-09 23:44 | HP ---
ADMIT DATE: 09/09/2019 CHIEF COMPLAINT: Abdominal pain. HISTORY OF PRESENT ILLNESS: The patient is a pleasant 49-year-old female who presented with abdominal pain. She rates it 7/10. She has associated nausea. It has been occurring for several days, worse with food, better with no food, describes as irritating. She tried taking some [id number] meds, but that did not help. When she got to the ER, we did some imaging. She has cholecystitis and gallstones. We are going to admit the patient and consult GI. She is going to surgery tomorrow. PAST MEDICAL HISTORY: Benign. ALLERGIES: None. FAMILY HISTORY: Hypertension. SOCIAL HISTORY: She does not drink, smoke or take drugs. MEDICATIONS: Reviewed. REVIEW OF SYSTEMS: GENERAL: No history of weight change, weakness or fevers. SKIN: No bruising, hair changes or rashes. EYES: No blurred, double or loss of vision. NOSE AND THROAT: No history of nosebleeds, hoarseness or sore throat. HEART: No history of palpitations, chest pain or shortness of breath on exertion. LUNGS: Denies cough, hemoptysis, wheezing or shortness of breath. GASTROINTESTINAL: She complains of abdominal pain. GENITOURINARY: No history of frequency, urgency, hesitancy or nocturia. NEUROLOGIC: Denies history of numbness, tingling, tremor or weakness. PSYCHIATRIC: No history of panic, anxiety or depression. ENDOCRINE: No history of heat or cold intolerance, polyuria or polydipsia. EXTREMITIES: Denies muscle weakness, joint pain, pain on walking and stiffness. PHYSICAL EXAMINATION: VITALS: Within normal limits and are stable. GENERAL: No apparent distress. Alert and oriented. HEENT: Normal cephalic atraumatic, external auditory canals are patent EYES: Extraocular muscles are intact, pupils are equally round and reactive to light and accommodation MUSCULOSKELETAL: Well developed, well nourished, good range of motion ENDOCRINE: No thyromegaly was palpated LYMPHATICS: No cervical chain or axillary nodes were noted HEMATOPOIETIC: No bruising NECK: Supple, no JVD, no thyromegaly was noted. LUNGS: Clear to auscultation in all lung locke without rhonchi or wheezing. HEART: RRR, S1, S2 present. Peripheral pulses intact, no obvious murmurs were noted. ABDOMEN: Soft, nontender. Positive bowel sounds no organomegaly, normal bowel sounds. EXTREMITIES: Without any cyanosis, clubbing, or edema. Pedal pulses intact, Homans sign is negative. NEUROLOGIC: Normal speech, normal tone. A & O x3, moves all extremities, no obvious focal deficits. PSYCHIATRIC: Normal affect, normal mood. Stable. SKIN: No ulcerations or rashes, good skin turgor, no jaundice. VASCULAR: Good capillary refill, neurovascular bundle appears to be intact. ASSESSMENT AND PLAN: Symptomatic gallstones. The patient has been admitted. We have given her p.r.n. pain medications and IV fluids. We consulted Surgery. She is going to the OR tomorrow. Deep vein thrombosis prophylaxis. Home medications, IV fluids. JACINTA FOREMAN DO DR: VIVIANE/toby JOB#: [id number] / [id number]
[2019-09-10] VITALS (7 sets, daily range): BP systolic 102–202; BP diastolic 41–118
[2019-09-10] MEDS: HYDROmorphone 2 MG/ML VIAL IV PRN ×2 (02:06→04:20)
[2019-09-10] MEDS ORDERED: ONDANSETRON PF 4 MG/2 ML VIAL. IVP PRN (02:15)
[2019-09-10] MEDS: PIPERACILLIN/TAZOBACTAM 3.375 GM in IV NORMAL SALINE 50ML 50 ML IV SCH ×4 (04:20→22:30)
[2019-09-10] MEDS ORDERED: BUPIVACAINE-EPI 0.25%-1:200000 MPF 30 ML VIAL. INJ ONE (06:00)
[2019-09-10] MEDS ORDERED: LIDOCAINE 2% PF 5 ML VIAL. ONE (07:00)
[2019-09-10] MEDS ORDERED: PROCHLORPERAZINE 10 MG/2 ML VIAL. IV PRN (07:00)
[2019-09-10] MEDS ORDERED: fentaNYL PF VIAL 100 MCG/2 ML VIAL ONE ×2 (07:00→08:52)
[2019-09-10] MEDS ORDERED: HYDROmorphone 2 MG/ML VIAL IV PRN (07:00)
[2019-09-10] MEDS ORDERED: fentaNYL PF VIAL 100 MCG/2 ML VIAL IV PRN ×2 (07:00)
[2019-09-10] MEDS ORDERED: ROCURONIUM 50 MG/5 ML VIAL. ONE (07:00)
[2019-09-10] MEDS ORDERED: MORPHINE SULFATE 2 MG/ML VIAL. IV PRN (07:00)
[2019-09-10] MEDS ORDERED: PROPOFOL 20 ML IV ONE (07:00)
[2019-09-10] MEDS ORDERED: SUCCINYLCHOLINE 200 MG/10 ML VIAL. ONE (07:00)
[2019-09-10] MEDS ORDERED: IV RINGERS,LACTATED 1000ML 1,000 ML IV SCH (07:00)
[2019-09-10] MEDS ORDERED: ONDANSETRON PF 4 MG/2 ML VIAL. IV PRN (07:00)
[2019-09-10] MEDS ORDERED: IOHEXOL 300 MG/ML 50 ML VIAL. ONE (07:01)
[2019-09-10] MEDS ORDERED: SURGICEL HEMOSTAT 4X8 EACH. ONE (07:01)
[2019-09-10] MEDS ORDERED: DEXAMETHASONE SOD PHOS 4 MG/ML VIAL ONE (07:35)
[2019-09-10] MEDS ORDERED: DESFLURANE 31 TO 60 MINUTES IH ONE (07:35)
[2019-09-10] MEDS ORDERED: ONDANSETRON PF 4 MG/2 ML VIAL. ONE (07:35)
[2019-09-10] MEDS ORDERED: PHENYLEPHRINE in 0.9% NACL PF 1 MG/10 ML SYRINGE. IV ONE (07:38)
[2019-09-10] MEDS ORDERED: GLYCOPYRROLATE 1 MG/5 ML VIAL. ONE (07:47)
[2019-09-10] MEDS ORDERED: NEOSTIGMINE METHYLSULFATE 5 MG/5 ML SYRINGE. ONE (07:47)
--- NOTE | 2019-09-10 08:04 | PDOC4 ---
Operative Note Operative Note Date: 09/10/2019 Preoperative diagnosis acute cholecystitis Postoperative diagnosis: Same Procedure: Lap scopic cholecystectomy Surgeon: Andrade Specimen: Gallbladder Dictation: Patient is a 49-year-old female is mated to the hospital with right upper quadrant abdominal pain all sound showing gallstones mildly thickened g allbladder wall consistent with acute cholecystitis. Procedure laparoscopic cholecystectomy was explained to the patient detail risk benefits were also discussed including bleeding infection injury to intra-abdominal contents possibly necessitating further or open operations alternatives to this procedure also discussed with patient who seemed to understand and gave both verbal and written consent had the procedure performed. Patient was taken to the operating room placed in supine renal anesthesia was initiated once patient was sleep and intubated her abdomen was prepped and draped usual sterile fashion using ChloraPrep. An area just below the umbilicus was injected with quarter percent Marcaine with epinephrine incision was made with 11 blade scalpel and a Veress needle was placed within the abdomen creating pneumoperitoneum once this was complete 11 mm port was placed and 5 mm camera was placed within the abdomen which was inspected no other abdomen maladies were noted 5 mill meter port was placed in the epigastrium and one in the right lateral abdomen and one in the right mid abdomen the dome of the gallbladder is grasped retracted cephalad the infundibulum of the gallbladder is grasped tract laterally exposing the triangle. The adherent tissues the triangle were taken down blunt dissection exposing the cystic duct and cystic artery both were doubly clipped and transected the gallbladder was taken off the liver with a clot cautery placed low in Endo Catch bag and removed from the umbilicus right upper quadrant was irrigated and suctioned dry hemostasis was deemed to be appropriate and the pneumoperitoneum was reduced all ports removed the fascial defect at the umbilicus was closed with [id number] 0 Vicryl suture and the skin was approximated all port sites with for septic and a Monocryl Mastisol Steri-Strips and island dressings were applied. Patient was awakened expend an operating room taken to recovery in stable condition all sponge instrument needle counts listed as correct estimated blood loss 10 mL PARUL CATHERINE MD Sep 10, 2019 08:04
[2019-09-10] MEDS: LOSARTAN POTASSIUM 50 MG TABLET. PO SCH (09:30)
[2019-09-10] MEDS: amLODIPine BESYLATE 10 MG TABLET PO SCH (09:31)
[2019-09-10] MEDS: KETOROLAC 15 MG/ML VIAL. IVP SCH ×3 (11:26→23:38)
[2019-09-10] MEDS: cloNIDine HCL 0.2 MG TABLET PO PRN ×2 (11:27→15:13)
--- NOTE | 2019-09-10 13:57 | PDOC ---
[employer] PROGRESS NOTE Chief Complaint Chief Complaint Postop laparoscopic cholecystectomy this morning History of Present Illness History of Present Illness 09/10/19 Patient seen and examined She is doing relatively well having some incisional pain and some pleurisy Discussed with RN Chart reviewed Vitals/I&O Vitals/I&O: Vital Signs Date Time Temp Pulse Resp B/P (MAP) Pulse Ox O2 Delivery O2 Flow Rate FiO2 09/10/19 11:27 80 202/106 09/10/19 10:03 96 Nasal Cannula 1.5 09/10/19 09:03 97 17 97.0 I & O 09/09/19 09/09/19 09/10/19 15:00 23:00 07:00 Intake Total 250 ml 50 ml Balance 250 ml 50 ml Physical Exam General: Alert, Oriented X3, Cooperative, moderate distress, Other (morbidly obese) Heart: Regular rate, No murmurs Lungs: Clear Abdomen: Soft, Other (tender to palpation right upper quadrant) Extremities: No clubbing, No cyanosis, No edema Skin: No rashes, No significant lesion Assessment and Plan Assessmemt and Plan Problems Medical Problems: (1) Abdominal pain Status: Acute (2) Cholelithiases Status: Postop laparoscopic cholecystectomy this morning Plan Wound care IV antibiotics [place] narcotics IV fluids DVT prophylaxis Full code Hope to advance diet and discharge when okay with surgery Comment Review of Relevant I have reviewed the following items neetu (where applicable) has been applied. Medications: Current Medications Medications (Trade) Dose Ordered Sig/Tristan Route PRN Reason Start Time Stop Time Status Last Admin Dose Admin Ondansetron HCl (Zofran) 4 mg PRN Q6HRS PRN IV NAUSEA/VOMITING 09/10/19 07:00 09/11/19 06:59 09/10/19 02:38 Fentanyl Citrate (Fentanyl 2ml Vial) 25 mcg PRN Q5MIN PRN IV MILD PAIN 1-3 09/10/19 07:00 09/11/19 06:59 09/10/19 08:56 Ringer's Solution 1,000 ml @ 30 mls/hr Q24H IV 09/10/19 07:00 09/10/19 18:59 09/10/19 07:00 Piperacillin Sod/ Tazobactam Sod 3.375 gm/Sodium Chloride 50 ml @ 100 mls/hr Q6H IV 09/09/19 16:00 09/10/19 09:31 Bupivacaine HCl/ Epinephrine Bitart (Sensorcaine-Epi 0.25%-1:813685 Mpf) 30 ml 1X ONCE INJ 09/10/19 06:00 09/10/19 06:01 DC 09/10/19 07:48 Ketorolac Tromethamine (Toradol 15mg Vial) 15 mg Q6HRS IVP 09/10/19 12:00 09/11/19 11:59 09/10/19 11:26 Clonidine HCl (Catapres) 0.2 mg PRN Q4HRS PRN PO HYPERTENSION 09/10/19 11:15 09/10/19 11:27 JACINTA FOREMAN III DO Sep 10, 2019 13:57
[2019-09-10 14:50] LABS: BASO % 0 % (0-3); EOS % 0 % (0-3); HEMATOCRIT 41.2 % (36.0-47.0); HEMOGLOBIN 13.4 g/dL (12.0-15.5); LYMPH # 0.4 x10^3/uL (1.0-4.8); LYMPH % 4 % (24-48); MEAN CORPUSCULAR HEMOGLOBIN 25 pg (25-35); MEAN CORPUSCULAR HGB CONC 33 g/dL (31-37); MEAN CORPUSCULAR VOLUME 78 fL (79-100); MONO # 0.2 x10^3/uL (0.0-1.1); MONO % 2 % (0-9); NEUT % 94 % (31-73); PLATELET COUNT 287 x10^3/uL (140-400); RED BLOOD COUNT 5.26 x10^6/uL (3.50-5.40); RED CELL DISTRIBUTION WIDTH 16.8 % (11.5-14.5); WHITE BLOOD COUNT 10.6 x10^3/uL (4.0-11.0)
[2019-09-10 15:08] LABS: ALBUMIN 3.7 g/dL (3.4-5.0); ALBUMIN/GLOBULIN RATIO 0.8 (1.0-1.7); CALCIUM 8.9 mg/dL (8.5-10.1); POTASSIUM 3.5 mmol/L (3.5-5.1); TOTAL BILIRUBIN 1.2 mg/dL (0.2-1.0); TOTAL PROTEIN 8.3 g/dL (6.4-8.2)
[2019-09-10] MEDS: oxyCODONE/APAP 5/325 1 TAB TABLET PO PRN ×2 (15:08→22:29)
[2019-09-11 03:00] VITALS: BP 112/66
[2019-09-11] MEDS: PIPERACILLIN/TAZOBACTAM 3.375 GM in IV NORMAL SALINE 50ML 50 ML IV SCH ×3 (04:30→17:45)
[2019-09-11] MEDS: oxyCODONE/APAP 5/325 1 TAB TABLET PO PRN ×5 (04:33→19:38)
--- NOTE | 2019-09-11 05:36 | NUR ---
This RN administered 1 tablet of Percocet 5 mg around 0430 and hour later the patient requested more pain medication. This RN then administered an additional tablet of Percocet 5 mg around 0530 in order to equal patient's dose of 2 tablets of Percocet 5 mg Q 4 hours PRN. Addendum: 09/11/19 at 0540 by ERIKA LIRA RN This RN informed the patient that she would have to wait 4 hours from the last tablet administration before she will be able to receive her next dose.
[2019-09-11] MEDS: KETOROLAC 15 MG/ML VIAL. IVP SCH (06:18)
[2019-09-11 07:00] VITALS: BP 182/92
--- NOTE | 2019-09-11 07:34 | PDOC ---
SURGICAL PROGRESS NOTE Subjective [place] for Dr Zafar sleepy, but arouses tolerating liquids Vital Signs Vital Signs Date Time Temp Pulse Resp B/P (MAP) Pulse Ox O2 Delivery O2 Flow Rate FiO2 09/11/19 06:34 95 Room Air 1.5 09/11/19 03:00 97.9 59 16 112/66 (81) 97.9 I&O Intake and Output 09/11/19 07:00 Intake Total 690 ml Output Total 12 ml Balance 678 ml Intake Oral 240 ml IV Total 450 ml Output Urine Total 2 ml Estimated Blood Loss 10 ml # Voids 2 PATIENT HAS A CALDWELL: No General: No acute distress Abdomen: Soft, Other (obese) Labs Laboratory Tests Test 09/10/19 14:40 White Blood Count 10.6 x10^3/uL (4.0-11.0) Red Blood Count 5.26 x10^6/uL (3.50-5.40) Hemoglobin 13.4 g/dL (12.0-15.5) Hematocrit 41.2 % (36.0-47.0) Mean Corpuscular Volume 78 fL (79-100) Mean Corpuscular Hemoglobin 25 pg (25-35) Mean Corpuscular Hemoglobin Concent 33 g/dL (31-37) Red Cell Distribution Width 16.8 % (11.5-14.5) Platelet Count 287 x10^3/uL (140-400) Neutrophils (%) (Auto) 94 % (31-73) Lymphocytes (%) (Auto) 4 % (24-48) Monocytes (%) (Auto) 2 % (0-9) Eosinophils (%) (Auto) 0 % (0-3) Basophils (%) (Auto) 0 % (0-3) Neutrophils # (Auto) 10.0 x10^3/uL (1.8-7.7) Lymphocytes # (Auto) 0.4 x10^3/uL (1.0-4.8) Monocytes # (Auto) 0.2 x10^3/uL (0.0-1.1) Eosinophils # (Auto) 0.0 x10^3/uL (0.0-0.7) Basophils # (Auto) 0.0 x10^3/uL (0.0-0.2) Sodium Level 136 mmol/L (136-145) Potassium Level 3.5 mmol/L (3.5-5.1) Chloride Level 99 mmol/L (98-107) Carbon Dioxide Level 31 mmol/L (21-32) Anion Gap 6 (6-14) Blood Urea Nitrogen 15 mg/dL (7-20) Creatinine 1.0 mg/dL (0.6-1.0) Estimated GFR (Cockcroft-Gault) 71.0 BUN/Creatinine Ratio 15 (6-20) Glucose Level 159 mg/dL (70-99) Calcium Level 8.9 mg/dL (8.5-10.1) Total Bilirubin 1.2 mg/dL (0.2-1.0) Aspartate Amino Transf (AST/SGOT) 28 U/L (15-37) Alanine Aminotransferase (ALT/SGPT) 22 U/L (14-59) Alkaline Phosphatase 105 U/L (46-116) Total Protein 8.3 g/dL (6.4-8.2) Albumin 3.7 g/dL (3.4-5.0) Albumin/Globulin Ratio 0.8 (1.0-1.7) Laboratory Tests Test 09/10/19 14:40 White Blood Count 10.6 x10^3/uL (4.0-11.0) Red Blood Count 5.26 x10^6/uL (3.50-5.40) Hemoglobin 13.4 g/dL (12.0-15.5) Hematocrit 41.2 % (36.0-47.0) Mean Corpuscular Volume 78 fL (79-100) Mean Corpuscular Hemoglobin 25 pg (25-35) Mean Corpuscular Hemoglobin Concent 33 g/dL (31-37) Red Cell Distribution Width 16.8 % (11.5-14.5) Platelet Count 287 x10^3/uL (140-400) Neutrophils (%) (Auto) 94 % (31-73) Lymphocytes (%) (Auto) 4 % (24-48) Monocytes (%) (Auto) 2 % (0-9) Eosinophils (%) (Auto) 0 % (0-3) Basophils (%) (Auto) 0 % (0-3) Neutrophils # (Auto) 10.0 x10^3/uL (1.8-7.7) Lymphocytes # (Auto) 0.4 x10^3/uL (1.0-4.8) Monocytes # (Auto) 0.2 x10^3/uL (0.0-1.1) Eosinophils # (Auto) 0.0 x10^3/uL (0.0-0.7) Basophils # (Auto) 0.0 x10^3/uL (0.0-0.2) Sodium Level 136 mmol/L (136-145) Potassium Level 3.5 mmol/L (3.5-5.1) Chloride Level 99 mmol/L (98-107) Carbon Dioxide Level 31 mmol/L (21-32) Anion Gap 6 (6-14) Blood Urea Nitrogen 15 mg/dL (7-20) Creatinine 1.0 mg/dL (0.6-1.0) Estimated GFR (Cockcroft-Gault) 71.0 BUN/Creatinine Ratio 15 (6-20) Glucose Level 159 mg/dL (70-99) Calcium Level 8.9 mg/dL (8.5-10.1) Total Bilirubin 1.2 mg/dL (0.2-1.0) Aspartate Amino Transf (AST/SGOT) 28 U/L (15-37) Alanine Aminotransferase (ALT/SGPT) 22 U/L (14-59) Alkaline Phosphatase 105 U/L (46-116) Total Protein 8.3 g/dL (6.4-8.2) Albumin 3.7 g/dL (3.4-5.0) Albumin/Globulin Ratio 0.8 (1.0-1.7) Problem List Problems Medical Problems: (1) Abdominal pain Status: Acute (2) Cholelithiases Status: Acute Assessment/Plan POD 1 l/s gila advance diet as tolerated possible dismissal later today f/u with Dr Zafar next week MATT CARRERO MD Sep 11, 2019 07:34
[2019-09-11] MEDS: LOSARTAN POTASSIUM 50 MG TABLET. PO SCH (09:28)
[2019-09-11] MEDS: amLODIPine BESYLATE 10 MG TABLET PO SCH (09:29)
[2019-09-11] MEDS: cloNIDine HCL 0.2 MG TABLET PO PRN (09:31)
--- NOTE | 2019-09-11 10:14 | PDOC ---
PROGRESS NOTES Chief Complaint Chief Complaint Postop laparoscopic cholecystectomy 09/10 History of Present Illness History of Present Illness 09/11/19 Patient seen and examined She is doing relatively well having some incisional pain and some pleurisy Discussed with RN LABILE HTN Chart reviewed Shadowing gallstones within the gallbladder and mild gallbladder wall thickening. Though no sonographic Stevens's sign was observed by the nuclear worker technician, cholecystitis [facility] Operative Note Operative Note Operative Note Date: 09/10/2019 Preoperative diagnosis acute cholecystitis Postoperative diagnosis: Same Procedure: Lap scopic cholecystectomy Surgeon: Andrade Specimen: Gallbladder Dictation: Patient is a 49-year-old female is mated to the hospital with right upper quadrant abdominal pain all sound showing gallstones mildly thickened gallbladder wall consistent with acute cholecystitis. Vitals Vitals Vital Signs Date Time Temp Pulse Resp B/P (MAP) Pulse Ox O2 Delivery O2 Flow Rate FiO2 09/11/19 09:31 64 182/92 09/11/19 09:28 Room Air 09/11/19 07:00 98.2 18 97 98.2 09/11/19 06:34 1.5 Physical Exam General: Alert, Oriented X3, Cooperative, No acute distress Heart: Regular rate, No murmurs Lungs: Clear Abdomen: Soft, Other (obese) Extremities: No clubbing, No cyanosis, No edema Skin: No rashes, No significant lesion Labs LABS : 1970 LOCATION: ER AGE: 49 SEX: F EXAM STATUS: REG ER ORD. PHYSICIAN: LINDSEY JANG MD REASON: epigastric, ruq pain PROCEDURE: ABDOMEN LTD STUDY: Realtime grayscale and color Doppler ultrasonography of the right upper quadrant INDICATION: Epigastric and right upper quadrant pain. COMPARISON: Correlation is made to the CT abdomen/pelvis from 05/05/2018. Findings: The study is made difficult by body habitus. The pancreas is not well visualized. The visualized portion of the pancreas is somewhat echogenic. Increased hepatic echogenicity. Patent main portal vein. Common bile duct caliber is within normal limits at 0.5 cm. The right kidney measures 11.3 cm in length without hydronephrosis. Shadowing gallstones are present. Mild gallbladder wall thickening. Impression: 1. Shadowing gallstones within the gallbladder and mild gallbladder wall thickening. Though no sonographic Stevens's sign was observed by the nuclear worker technician, cholecystitis is a consideration. As clinically indicated, biliary scintigraphy could be performed. 2. Within normal limits common bile duct caliber at 0.5 cm. No choledocholithiasis visualized though portions of the pancreatic duct are not well evaluated due to body habitus. 3. Incompletely evaluated pancreas. 4. No sonographic abnormality of the right kidney. 5. Increased hepatic echogenicity suggestive of hepatic steatosis. Electronically signed by: DAMIAN OSORIO MD (09/09/2019 1:18 AM) [facility] [place] DICTATED and SIGNED BY: DAMIAN OSORIO MD DATE: 09/09/19 0118 Laboratory Tests Test 09/10/19 14:40 White Blood Count 10.6 x10^3/uL (4.0-11.0) Red Blood Count 5.26 x10^6/uL (3.50-5.40) Hemoglobin 13.4 g/dL (12.0-15.5) Hematocrit 41.2 % (36.0-47.0) Mean Corpuscular Volume 78 fL (79-100) Mean Corpuscular Hemoglobin 25 pg (25-35) Mean Corpuscular Hemoglobin Concent 33 g/dL (31-37) Red Cell Distribution Width 16.8 % (11.5-14.5) Platelet Count 287 x10^3/uL (140-400) Neutrophils (%) (Auto) 94 % (31-73) Lymphocytes (%) (Auto) 4 % (24-48) Monocytes (%) (Auto) 2 % (0-9) Eosinophils (%) (Auto) 0 % (0-3) Basophils (%) (Auto) 0 % (0-3) Neutrophils # (Auto) 10.0 x10^3/uL (1.8-7.7) Lymphocytes # (Auto) 0.4 x10^3/uL (1.0-4.8) Monocytes # (Auto) 0.2 x10^3/uL (0.0-1.1) Eosinophils # (Auto) 0.0 x10^3/uL (0.0-0.7) Basophils # (Auto) 0.0 x10^3/uL (0.0-0.2) Sodium Level 136 mmol/L (136-145) Potassium Level 3.5 mmol/L (3.5-5.1) Chloride Level 99 mmol/L (98-107) Carbon Dioxide Level 31 mmol/L (21-32) Anion Gap 6 (6-14) Blood Urea Nitrogen 15 mg/dL (7-20) Creatinine 1.0 mg/dL (0.6-1.0) Estimated GFR (Cockcroft-Gault) 71.0 BUN/Creatinine Ratio 15 (6-20) Glucose Level 159 mg/dL (70-99) Calcium Level 8.9 mg/dL (8.5-10.1) Total Bilirubin 1.2 mg/dL (0.2-1.0) Aspartate Amino Transf (AST/SGOT) 28 U/L (15-37) Alanine Aminotransferase (ALT/SGPT) 22 U/L (14-59) Alkaline Phosphatase 105 U/L (46-116) Total Protein 8.3 g/dL (6.4-8.2) Albumin 3.7 g/dL (3.4-5.0) Albumin/Globulin Ratio 0.8 (1.0-1.7) Assessment and Plan Assessmemt and Plan Problems Medical Problems: (1) Abdominal pain Status: Acute (2) Cholelithiases Status: Acute Comment Review of Relevant I have reviewed the following items neetu (where applicable) has been applied. Labs Laboratory Tests Test 09/10/19 14:40 White Blood Count 10.6 x10^3/uL (4.0-11.0) Red Blood Count 5.26 x10^6/uL (3.50-5.40) Hemoglobin 13.4 g/dL (12.0-15.5) Hematocrit 41.2 % (36.0-47.0) Mean Corpuscular Volume 78 fL (79-100) Mean Corpuscular Hemoglobin 25 pg (25-35) Mean Corpuscular Hemoglobin Concent 33 g/dL (31-37) Red Cell Distribution Width 16.8 % (11.5-14.5) Platelet Count 287 x10^3/uL (140-400) Neutrophils (%) (Auto) 94 % (31-73) Lymphocytes (%) (Auto) 4 % (24-48) Monocytes (%) (Auto) 2 % (0-9) Eosinophils (%) (Auto) 0 % (0-3) Basophils (%) (Auto) 0 % (0-3) Neutrophils # (Auto) 10.0 x10^3/uL (1.8-7.7) Lymphocytes # (Auto) 0.4 x10^3/uL (1.0-4.8) Monocytes # (Auto) 0.2 x10^3/uL (0.0-1.1) Eosinophils # (Auto) 0.0 x10^3/uL (0.0-0.7) Basophils # (Auto) 0.0 x10^3/uL (0.0-0.2) Sodium Level 136 mmol/L (136-145) Potassium Level 3.5 mmol/L (3.5-5.1) Chloride Level 99 mmol/L (98-107) Carbon Dioxide Level 31 mmol/L (21-32) Anion Gap 6 (6-14) Blood Urea Nitrogen 15 mg/dL (7-20) Creatinine 1.0 mg/dL (0.6-1.0) Estimated GFR (Cockcroft-Gault) 71.0 BUN/Creatinine Ratio 15 (6-20) Glucose Level 159 mg/dL (70-99) Calcium Level 8.9 mg/dL (8.5-10.1) Total Bilirubin 1.2 mg/dL (0.2-1.0) Aspartate Amino Transf (AST/SGOT) 28 U/L (15-37) Alanine Aminotransferase (ALT/SGPT) 22 U/L (14-59) Alkaline Phosphatase 105 U/L (46-116) Total Protein 8.3 g/dL (6.4-8.2) Albumin 3.7 g/dL (3.4-5.0) Albumin/Globulin Ratio 0.8 (1.0-1.7) Laboratory Tests Test 09/10/19 14:40 White Blood Count 10.6 x10^3/uL (4.0-11.0) Red Blood Count 5.26 x10^6/uL (3.50-5.40) Hemoglobin 13.4 g/dL (12.0-15.5) Hematocrit 41.2 % (36.0-47.0) Mean Corpuscular Volume 78 fL (79-100) Mean Corpuscular Hemoglobin 25 pg (25-35) Mean Corpuscular Hemoglobin Concent 33 g/dL (31-37) Red Cell Distribution Width 16.8 % (11.5-14.5) Platelet Count 287 x10^3/uL (140-400) Neutrophils (%) (Auto) 94 % (31-73) Lymphocytes (%) (Auto) 4 % (24-48) Monocytes (%) (Auto) 2 % (0-9) Eosinophils (%) (Auto) 0 % (0-3) Basophils (%) (Auto) 0 % (0-3) Neutrophils # (Auto) 10.0 x10^3/uL (1.8-7.7) Lymphocytes # (Auto) 0.4 x10^3/uL (1.0-4.8) Monocytes # (Auto) 0.2 x10^3/uL (0.0-1.1) Eosinophils # (Auto) 0.0 x10^3/uL (0.0-0.7) Basophils # (Auto) 0.0 x10^3/uL (0.0-0.2) Sodium Level 136 mmol/L (136-145) Potassium Level 3.5 mmol/L (3.5-5.1) Chloride Level 99 mmol/L (98-107) Carbon Dioxide Level 31 mmol/L (21-32) Anion Gap 6 (6-14) Blood Urea Nitrogen 15 mg/dL (7-20) Creatinine 1.0 mg/dL (0.6-1.0) Estimated GFR (Cockcroft-Gault) 71.0 BUN/Creatinine Ratio 15 (6-20) Glucose Level 159 mg/dL (70-99) Calcium Level 8.9 mg/dL (8.5-10.1) Total Bilirubin 1.2 mg/dL (0.2-1.0) Aspartate Amino Transf (AST/SGOT) 28 U/L (15-37) Alanine Aminotransferase (ALT/SGPT) 22 U/L (14-59) Alkaline Phosphatase 105 U/L (46-116) Total Protein 8.3 g/dL (6.4-8.2) Albumin 3.7 g/dL (3.4-5.0) Albumin/Globulin Ratio 0.8 (1.0-1.7) Medications Current Medications Fentanyl Citrate (Fentanyl 2ml Vial) 50 mcg PRN Q15MIN PRN IV PAIN GREATER THAN 3/10 Last administered on 09/09/19at 00:50; Start 09/08/19 at 21:45; Stop 09/09/19 at 11:13; Status DC Sodium Chloride 1,000 ml @ 1,000 mls/hr Q1H IV Last administered on 09/08/19at 21:43; Start 09/08/19 at 21:45; Stop 09/08/19 at 22:44; Status DC Ondansetron HCl (Zofran) 4 mg 1X ONCE IV Last administered on 09/08/19at 21:43; Start 09/08/19 at 21:45; Stop 09/08/19 at 21:46; Status DC Hydromorphone HCl (Dilaudid) 1 mg 1X ONCE IV Last administered on 09/09/19at 02:13; Start 09/09/19 at 00:30; Stop 09/09/19 at 00:31; Status DC Piperacillin Sod/ Tazobactam Sod 3.375 gm/Sodium Chloride 50 ml @ 100 mls/hr 1X ONCE IV Last administered on 09/09/19at 00:50; Start 09/09/19 at 00:30; Stop 09/09/19 at 00:59; Status DC Hydralazine HCl (Apresoline Inj) 10 mg 1X ONCE IVP Last administered on 09/09/19at 00:49; Start 09/09/19 at 00:30; Stop 09/09/19 at 00:31; Status DC Ondansetron HCl (Zofran) 4 mg PRN Q8HRS PRN IV NAUSEA/VOMITING; Start 09/09/19 at 01:30; Stop 09/10/19 at 01:30; Status DC Oxycodone/ Acetaminophen (Percocet 5/325) 1 tab PRN Q6HRS PRN PO PAIN Last administered on 09/09/19at 06:04; Start 09/09/19 at 02:45; Stop 09/10/19 at 08:08; Status DC Hydromorphone HCl (Dilaudid) 1 mg 1X ONCE IV Last administered on 09/09/19at 08:30; Start 09/09/19 at 08:30; Stop 09/09/19 at 08:31; Status DC Ketorolac Tromethamine (Toradol 30mg Vial) 30 mg 1X ONCE IVP Last administered on 09/09/19at 08:30; Start 09/09/19 at 08:30; Stop 09/09/19 at 08:31; Status DC Hydromorphone HCl (Dilaudid) 1 mg PRN Q2HRS ONCE IV ; Start 09/09/19 at 11:15; Stop 09/09/19 at 11:16; Status Cancel Hydromorphone HCl (Dilaudid) 2 mg PRN Q2HRS PRN IV PAIN; Start 09/09/19 at 11:15; Stop 09/09/19 at 11:16; Status DC Hydromorphone HCl (Dilaudid) 1 mg PRN Q2HRS PRN IV PAIN Last administered on 09/10/19at 04:20; Start 09/09/19 at 11:15 Losartan Potassium (Cozaar) 100 mg DAILY PO Last administered on 09/11/19at 09:28; Start 09/09/19 at 11:45 Amlodipine Besylate (Norvasc) 10 mg DAILY PO Last administered on 09/11/19at 09:29; Start 09/09/19 at 13:30 Ondansetron HCl (Zofran) 4 mg PRN Q6HRS PRN IV NAUSEA/VOMITING Last administered on 09/10/19at 02:38; Start 09/10/19 at 07:00; Stop 09/11/19 at 06:59; Status DC Fentanyl Citrate (Fentanyl 2ml Vial) 25 mcg PRN Q5MIN PRN IV MILD PAIN 1-3 Last administered on 09/10/19at 08:56; Start 09/10/19 at 07:00; Stop 09/11/19 at 06:59; Status DC Fentanyl Citrate (Fentanyl 2ml Vial) 50 mcg PRN Q5MIN PRN IV MODERATE TO SEVERE PAIN; Start 09/10/19 at 07:00; Stop 09/11/19 at 06:59; Status DC Morphine Sulfate (Morphine Sulfate) 1 mg PRN Q10MIN PRN IV SEVERE PAIN 7-10; Start 09/10/19 at 07:00; Stop 09/11/19 at 06:59; Status DC Ringer's Solution 1,000 ml @ 30 mls/hr Q24H IV Last administered on 09/10/19at 07:00; Start 09/10/19 at 07:00; Stop 09/10/19 at 18:59; Status DC Hydromorphone HCl (Dilaudid) 0.5 mg PRN Q10MIN PRN IV SEV PAIN, Second choice; Start 09/10/19 at 07:00; Stop 09/11/19 at 06:59; Status DC Prochlorperazine Edisylate (Compazine) 5 mg PACU PRN PRN IV NAUSEA, MRX1; Start 09/10/19 at 07:00; Stop 09/11/19 at 06:59; Status DC Piperacillin Sod/ Tazobactam Sod 3.375 gm/Sodium Chloride 50 ml @ 100 mls/hr Q6H IV Last administered on 09/11/19at 04:30; Start 09/09/19 at 16:00 Bupivacaine HCl/ Epinephrine Bitart (Sensorcaine-Epi 0.25%-1:260810 Mpf) 30 ml 1X ONCE INJ ; Start 09/09/19 at 17:45; Stop 09/09/19 at 17:43; Status DC Bupivacaine HCl/ Epinephrine Bitart (Sensorcaine-Epi 0.25%-1:842141 Mpf) 30 ml 1X ONCE INJ Last administered on 09/10/19at 07:48; Start 09/10/19 at 06:00; Stop 09/10/19 at 06:01; Status DC Ondansetron HCl (Zofran) 4 mg PRN Q8HRS PRN IVP NAUSEA/VOMITING; Start 09/10/19 at 02:15 Propofol 20 ml @ As Directed STK-MED ONCE IV ; Start 09/10/19 at 07:00; Stop 09/10/19 at 07:01; Status DC Lidocaine HCl (Lidocaine Pf 2% Vial) 5 ml STK-MED ONCE .ROUTE ; Start 09/10/19 at 07:00; Stop 09/10/19 at 07:01; Status DC Fentanyl Citrate (Fentanyl 2ml Vial) 100 mcg STK-MED ONCE .ROUTE ; Start 09/10/19 at 07:00; Stop 09/10/19 at 07:01; Status DC Succinylcholine Chloride (Anectine) 200 mg STK-MED ONCE .ROUTE ; Start 09/10/19 at 07:00; Stop 09/10/19 at 07:01; Status DC Rocuronium [place] (Zemuron) 50 mg STK-MED ONCE .ROUTE ; Start 09/10/19 at 07:00; Stop 09/10/19 at 07:01; Status DC Iohexol (Omnipaque 300 Mg/ml) 50 ml STK-MED ONCE .ROUTE ; Start 09/10/19 at 07:01; Stop 09/10/19 at 07:01; Status DC Cellulose (Surgicel Hemostat 4x8) 1 each STK-MED ONCE .ROUTE ; Start 09/10/19 at 07:01; Stop 09/10/19 at 07:01; Status DC Ondansetron HCl (Zofran) 4 mg STK-MED ONCE .ROUTE ; Start 09/10/19 at 07:35; Stop 09/10/19 at 07:35; Status DC Dexamethasone Sodium Phosphate (Decadron) 4 mg STK-MED ONCE .ROUTE ; Start 1 at 07:35; Stop 09/10/19 at 07:35; Status DC Desflurane (Suprane) 30 ml STK-MED ONCE IH ; Start 09/10/19 at 07:35; Stop 09/10/19 at 07:35; Status DC Phenylephrine HCl (PHENYLEPHRINE in 0.9% NACL PF) 1 mg STK-MED ONCE IV ; Start 09/10/19 at 07:38; Stop 09/10/19 at 07:39; Status DC Glycopyrrolate (Robinul) 1 mg STK-MED ONCE .ROUTE ; Start 09/10/19 at 07:47; Stop 09/10/19 at 07:48; Status DC Neostigmine Methylsulfate (Neostigmine Methylsulfate) 5 mg STK-MED ONCE .ROUTE ; Start 09/10/19 at 07:47; Stop 09/10/19 at 07:48; Status DC Oxycodone/ Acetaminophen (Percocet 5/325) 1 tab PRN Q4HRS PRN PO MILD PAIN 1-3 Last administered on 09/11/19at 05:34; Start 09/10/19 at 08:15 Oxycodone/ Acetaminophen (Percocet 5/325) 2 tab PRN Q4HRS PRN PO MODERATE PAIN, SEVERE PAIN Last administered on 09/11/19at 09:28; Start 09/10/19 at 08:15 Ketorolac Tromethamine (Toradol 15mg Vial) 15 mg Q6HRS IVP Last administered on 09/11/19at 06:18; Start 09/10/19 at 12:00; Stop 09/11/19 at 11:59 Fentanyl Citrate (Fentanyl 2ml Vial) 100 mcg STK-MED ONCE .ROUTE ; Start 09/10/19 at 08:52; Stop 09/10/19 at 08:53; Status DC Clonidine HCl (Catapres) 0.2 mg PRN Q4HRS PRN PO HYPERTENSION Last administered on 09/11/19at 09:31; Start 09/10/19 at 11:15 Active Scripts Active Reported Losartan Potassium 100 Mg Tablet 100 Mg PO DAILY Vitals/I & O Vital Sign - Last 24 Hours 09/10/19 09/10/19 09/10/19 09/10/19 11:27 15:00 15:13 19:00 Temp 97.9 98.8 97.9 98.8 Pulse 80 81 73 Resp 20 18 B/P (MAP) 202/106 185/91 (122) 185/91 102/41 (61) Pulse Ox 98 94 O2 Delivery Nasal Cannula O2 Flow Rate 1.5 09/10/19 09/10/19 09/10/19 09/11/19 20:00 22:29 23:00 03:00 Temp 97.9 97.9 97.9 97.9 Pulse 75 59 Resp 16 16 B/P (MAP) 121/73 (89) 112/66 (81) Pulse Ox 95 95 O2 Delivery Room Air Room Air 09/11/19 09/11/19 09/11/19 09/11/19 04:33 05:34 05:34 06:34 Pulse Ox 95 95 95 95 O2 Delivery Room Air Room Air Room Air Room Air O2 Flow Rate 1.5 09/11/19 09/11/19 09/11/19 09/11/19 07:00 09:28 09:28 09:29 Temp 98.2 98.2 Pulse 64 64 64 Resp 18 B/P (MAP) 182/92 (122) 182/92 182/92 Pulse Ox 97 O2 Delivery Room Air Room Air 09/11/19 09:31 Pulse 64 B/P (MAP) 182/92 Intake and Output 09/10/19 09/10/19 09/11/19 15:00 23:00 07:00 Intake Total 400 ml 50 ml 240 ml Output Total 10 ml 2 ml Balance 390 ml 50 ml 238 ml PARUL CARSON MD Sep 11, 2019 10:14
[2019-09-11 11:00] VITALS: BP 142/85
[2019-09-11 15:00] VITALS: BP 138/80
[2019-09-11] MEDS ORDERED: SIMETHICONE 80 MG TAB.CHEW PO PRN (18:00)
[2019-09-11 19:00] VITALS: BP 171/92
[2019-09-11] MEDS: LACTOBACILLUS RHAMNOSUS GG 1 CAPSULE. PO SCH (20:59)
[2019-09-11 23:00] VITALS: BP 157/95
[2019-09-12] MEDS: PIPERACILLIN/TAZOBACTAM 3.375 GM in IV NORMAL SALINE 50ML 50 ML IV SCH ×3 (00:20→12:12)
[2019-09-12] MEDS: oxyCODONE/APAP 5/325 1 TAB TABLET PO PRN ×2 (00:21→05:26)
[2019-09-12 03:00] VITALS: BP 141/88
[2019-09-12 07:00] VITALS: BP_SYST 93
[2019-09-12] MEDS: LOSARTAN POTASSIUM 50 MG TABLET. PO SCH (08:37)
[2019-09-12] MEDS: LACTOBACILLUS RHAMNOSUS GG 1 CAPSULE. PO SCH (08:37)
[2019-09-12] MEDS: amLODIPine BESYLATE 10 MG TABLET PO SCH (08:38)
[2019-09-12] MEDS ORDERED: NON FORMULARY ITEM (Losartan Potassium 100 MG) PO SCH (09:00)
--- NOTE | 2019-09-12 09:20 | PDOC ---
PROGRESS NOTES Chief Complaint Chief Complaint DISCHARGE DX Postop laparoscopic cholecystectomy 09/10 History of Present Illness History of Present Illness 09/12/19 Patient seen and examined She is doing well having some incisional pain and some pleurisy, BP HIGH YESTERDAY Discussed with RN LABILE HTN , IMPROVED Chart reviewed Shadowing gallstones within the gallbladder and mild gallbladder wall thickening. Though no sonographic Stevens's sign was observed by the geotechnicial properties technician, cholecystitis [facility] Operative Note Operative Note Operative Note Date: 09/10/2019 Preoperative diagnosis acute cholecystitis Postoperative diagnosis: Same Procedure: Lap scopic cholecystectomy Surgeon: Andrade Specimen: Gallbladder Dictation: Patient is a 49-year-old female is mated to the hospital with right upper quadrant abdominal pain all sound showing gallstones mildly thickened gallbladder wall consistent with acute cholecystitis. D/C PLANNING 31 MIN Vitals Vitals Vital Signs Date Time Temp Pulse Resp B/P (MAP) Pulse Ox O2 Delivery O2 Flow Rate FiO2 09/12/19 08:38 64 169/93 09/12/19 07:00 97.5 17 96 Room Air 97.5 Physical Exam General: Alert, Oriented X3, Cooperative, No acute distress Heart: Regular rate, Normal S1, No murmurs Lungs: Clear Abdomen: Normal bowel sounds, Soft, Other (obese) Extremities: No clubbing, No cyanosis, No edema Skin: No rashes, No significant lesion Assessment and Plan Assessmemt and Plan Problems Medical Problems: (1) Abdominal pain Status: Acute (2) Cholelithiases Status: Acute Comment Review of Relevant I have reviewed the following items neetu (where applicable) has been applied. Labs Laboratory Tests Test 09/10/19 14:40 White Blood Count 10.6 x10^3/uL (4.0-11.0) Red Blood Count 5.26 x10^6/uL (3.50-5.40) Hemoglobin 13.4 g/dL (12.0-15.5) Hematocrit 41.2 % (36.0-47.0) Mean Corpuscular Volume 78 fL (79-100) Mean Corpuscular Hemoglobin 25 pg (25-35) Mean Corpuscular Hemoglobin Concent 33 g/dL (31-37) Red Cell Distribution Width 16.8 % (11.5-14.5) Platelet Count 287 x10^3/uL (140-400) Neutrophils (%) (Auto) 94 % (31-73) Lymphocytes (%) (Auto) 4 % (24-48) Monocytes (%) (Auto) 2 % (0-9) Eosinophils (%) (Auto) 0 % (0-3) Basophils (%) (Auto) 0 % (0-3) Neutrophils # (Auto) 10.0 x10^3/uL (1.8-7.7) Lymphocytes # (Auto) 0.4 x10^3/uL (1.0-4.8) Monocytes # (Auto) 0.2 x10^3/uL (0.0-1.1) Eosinophils # (Auto) 0.0 x10^3/uL (0.0-0.7) Basophils # (Auto) 0.0 x10^3/uL (0.0-0.2) Sodium Level 136 mmol/L (136-145) Potassium Level 3.5 mmol/L (3.5-5.1) Chloride Level 99 mmol/L (98-107) Carbon Dioxide Level 31 mmol/L (21-32) Anion Gap 6 (6-14) Blood Urea Nitrogen 15 mg/dL (7-20) Creatinine 1.0 mg/dL (0.6-1.0) Estimated GFR (Cockcroft-Gault) 71.0 BUN/Creatinine Ratio 15 (6-20) Glucose Level 159 mg/dL (70-99) Calcium Level 8.9 mg/dL (8.5-10.1) Total Bilirubin 1.2 mg/dL (0.2-1.0) Aspartate Amino Transf (AST/SGOT) 28 U/L (15-37) Alanine Aminotransferase (ALT/SGPT) 22 U/L (14-59) Alkaline Phosphatase 105 U/L (46-116) Total Protein 8.3 g/dL (6.4-8.2) Albumin 3.7 g/dL (3.4-5.0) Albumin/Globulin Ratio 0.8 (1.0-1.7) Medications Current Medications Fentanyl Citrate (Fentanyl 2ml Vial) 50 mcg PRN Q15MIN PRN IV PAIN GREATER THAN 3/10 Last administered on 09/09/19at 00:50; Start 12/29/19 at 21:45; Stop 09/09/19 at 11:13; Status DC Sodium Chloride 1,000 ml @ 1,000 mls/hr Q1H IV Last administered on 09/08/19at 21:43; Start 09/08/19 at 21:45; Stop 09/08/19 at 22:44; Status DC Ondansetron HCl (Zofran) 4 mg 1X ONCE IV Last administered on 09/08/19at 21:43; Start 09/08/19 at 21:45; Stop 09/08/19 at 21:46; Status DC Hydromorphone HCl (Dilaudid) 1 mg 1X ONCE IV Last administered on 09/09/19at 02:13; Start 09/09/19 at 00:30; Stop 09/09/19 at 00:31; Status DC Piperacillin Sod/ Tazobactam Sod 3.375 gm/Sodium Chloride 50 ml @ 100 mls/hr 1X ONCE IV Last administered on 09/09/19at 00:50; Start 09/09/19 at 00:30; Stop 09/09/19 at 00:59; Status DC Hydralazine HCl (Apresoline Inj) 10 mg 1X ONCE IVP Last administered on 09/09/19at 00:49; Start 09/09/19 at 00:30; Stop 09/09/19 at 00:31; Status DC Ondansetron HCl (Zofran) 4 mg PRN Q8HRS PRN IV NAUSEA/VOMITING; Start 09/09/19 at 01:30; Stop 09/10/19 at 01:30; Status DC Oxycodone/ Acetaminophen (Percocet 5/325) 1 tab PRN Q6HRS PRN PO PAIN Last administered on 09/09/19at 06:04; Start 09/09/19 at 02:45; Stop 09/10/19 at 08:08; Status DC Hydromorphone HCl (Dilaudid) 1 mg 1X ONCE IV Last administered on 09/09/19at 08:30; Start 09/09/19 at 08:30; Stop 09/09/19 at 08:31; Status DC Ketorolac Tromethamine (Toradol 30mg Vial) 30 mg 1X ONCE IVP Last administered on 09/09/19at 08:30; Start 09/09/19 at 08:30; Stop 09/09/19 at 08:31; Status DC Hydromorphone HCl (Dilaudid) 1 mg PRN Q2HRS ONCE IV ; Start 09/09/19 at 11:15; Stop 09/09/19 at 11:16; Status Cancel Hydromorphone HCl (Dilaudid) 2 mg PRN Q2HRS PRN IV PAIN; Start 09/09/19 at 11:15; Stop 09/09/19 at 11:16; Status DC Hydromorphone HCl (Dilaudid) 1 mg PRN Q2HRS PRN IV PAIN Last administered on 09/10/19at 04:20; Start 09/09/19 at 11:15 Losartan Potassium (Cozaar) 100 mg DAILY PO Last administered on 09/12/19at 08:37; Start 09/09/19 at 11:45 Amlodipine Besylate (Norvasc) 10 mg DAILY PO Last administered on 09/12/19at 08:38; Start 09/09/19 at 13:30 Ondansetron HCl (Zofran) 4 mg PRN Q6HRS PRN IV NAUSEA/VOMITING Last administered on 09/10/19at 02:38; Start 09/10/19 at 07:00; Stop 09/11/19 at 06:59; Status DC Fentanyl Citrate (Fentanyl 2ml Vial) 25 mcg PRN Q5MIN PRN IV MILD PAIN 1-3 Last administered on 09/10/19at 08:56; Start 09/10/19 at 07:00; Stop 09/11/19 at 06:59; Status DC Fentanyl Citrate (Fentanyl 2ml Vial) 50 mcg PRN Q5MIN PRN IV MODERATE TO SEVERE PAIN; Start 09/10/19 at 07:00; Stop 09/11/19 at 06:59; Status DC Morphine Sulfate (Morphine Sulfate) 1 mg PRN Q10MIN PRN IV SEVERE PAIN 7-10; Start 09/10/19 at 07:00; Stop 09/11/19 at 06:59; Status DC Ringer's Solution 1,000 ml @ 30 mls/hr Q24H IV Last administered on 09/10/19at 07:00; Start 09/10/19 at 07:00; Stop 09/10/19 at 18:59; Status DC Hydromorphone HCl (Dilaudid) 0.5 mg PRN Q10MIN PRN IV SEV PAIN, Second choice; Start 09/10/19 at 07:00; Stop 09/11/19 at 06:59; Status DC Prochlorperazine Edisylate (Compazine) 5 mg PACU PRN PRN IV NAUSEA, MRX1; Start 09/10/19 at 07:00; Stop 09/11/19 at 06:59; Status DC Piperacillin Sod/ Tazobactam Sod 3.375 gm/Sodium Chloride 50 ml @ 100 mls/hr Q6H IV Last administered on 09/12/19at 05:26; Start 09/09/19 at 16:00 Bupivacaine HCl/ Epinephrine Bitart (Sensorcaine-Epi 0.25%-1:485329 Mpf) 30 ml 1X ONCE INJ ; Start 09/09/19 at 17:45; Stop 09/09/19 at 17:43; Status DC Bupivacaine HCl/ Epinephrine Bitart (Sensorcaine-Epi 0.25%-1:177868 Mpf) 30 ml 1X ONCE INJ Last administered on 09/10/19at 07:48; Start 09/10/19 at 06:00; Stop 09/10/19 at 06:01; Status DC Ondansetron HCl (Zofran) 4 mg PRN Q8HRS PRN IVP NAUSEA/VOMITING; Start 09/10/19 at 02:15 Propofol 20 ml @ As Directed STK-MED ONCE IV ; Start 09/10/19 at 07:00; Stop 09/10/19 at 07:01; Status DC Lidocaine HCl (Lidocaine Pf 2% Vial) 5 ml STK-MED ONCE .ROUTE ; Start 09/10/19 at 07:00; Stop 09/10/19 at 07:01; Status DC Fentanyl Citrate (Fentanyl 2ml Vial) 100 mcg STK-MED ONCE .ROUTE ; Start 09/10/19 at 07:00; Stop 09/10/19 at 07:01; Status DC Succinylcholine Chloride (Anectine) 200 mg STK-MED ONCE .ROUTE ; Start 09/10/19 at 07:00; Stop 09/10/19 at 07:01; Status DC Rocuronium [place] (Zemuron) 50 mg STK-MED ONCE .ROUTE ; Start 09/10/19 at 07:00; Stop 09/10/19 at 07:01; Status DC Iohexol (Omnipaque 300 Mg/ml) 50 ml STK-MED ONCE .ROUTE ; Start 09/10/19 at 07:01; Stop 09/10/19 at 07:01; Status DC Cellulose (Surgicel Hemostat 4x8) 1 each STK-MED ONCE .ROUTE ; Start 09/10/19 at 07:01; Stop 09/10/19 at 07:01; Status DC Ondansetron HCl (Zofran) 4 mg STK-MED ONCE .ROUTE ; Start 09/10/19 at 07:35; S top 09/10/19 at 07:35; Status DC Dexamethasone Sodium Phosphate (Decadron) 4 mg STK-MED ONCE .ROUTE ; Start 09/10/19 at 07:35; Stop 09/10/19 at 07:35; Status DC Desflurane (Suprane) 30 ml STK-MED ONCE IH ; Start 09/10/19 at 07:35; Stop 09/10/19 at 07:35; Status DC Phenylephrine HCl (PHENYLEPHRINE in 0.9% NACL PF) 1 mg STK-MED ONCE IV ; Start 09/10/19 at 07:38; Stop 09/10/19 at 07:39; Status DC Glycopyrrolate (Robinul) 1 mg STK-MED ONCE .ROUTE ; Start 09/10/19 at 07:47; Stop 09/10/19 at 07:48; Status DC Neostigmine Methylsulfate (Neostigmine Methylsulfate) 5 mg STK-MED ONCE .ROUTE ; Start 09/10/19 at 07:47; Stop 09/10/19 at 07:48; Status DC Oxycodone/ Acetaminophen (Percocet 5/325) 1 tab PRN Q4HRS PRN PO MILD PAIN 1-3 Last administered on 09/11/19at 05:34; Start 09/10/19 at 08:15 Oxycodone/ Acetaminophen (Percocet 5/325) 2 tab PRN Q4HRS PRN PO MODERATE PAIN, SEVERE PAIN Last administered on 09/12/19at 05:26; Start 09/10/19 at 08:15 Ketorolac Tromethamine (Toradol 15mg Vial) 15 mg Q6HRS IVP Last administered on 09/11/19at 06:18; Start 09/10/19 at 12:00; Stop 09/11/19 at 11:59; Status DC Fentanyl Citrate (Fentanyl 2ml Vial) 100 mcg STK-MED ONCE .ROUTE ; Start 09/10/19 at 08:52; Stop 09/10/19 at 08:53; Status DC Clonidine HCl (Catapres) 0.2 mg PRN Q4HRS PRN PO HYPERTENSION Last administered on 09/11/19at 09:31; Start 09/10/19 at 11:15 Non-Formulary Medication (Losartan Potassium ) 100 mg DAILY PO ; Start 09/12/19 at 09:00; Stop 09/11/19 at 15:37; Status DC Lactobacillus Rhamnosus (Culturelle) 1 cap BID PO Last administered on 09/12/19at 08:37; Start 09/11/19 at 21:00 Simethicone (Gas-X) 80 mg PRN AFTMEALHC PRN PO GAS / BLOATING Last administered on 09/11/19at 18:12; Start 09/11/19 at 18:00 Active Scripts Active Reported Losartan Potassium 100 Mg Tablet 100 Mg PO DAILY Vitals/I & O Vital Sign - Last 24 Hours 09/11/19 09/11/19 09/11/19 09/11/19 09:28 09:28 09:29 09:31 Pulse 64 64 64 B/P (MAP) 182/92 182/92 182/92 O2 Delivery Room Air 09/11/19 09/11/19 09/11/19 09/11/19 11:00 13:38 15:00 19:00 Temp 98.2 98.1 98.5 98.2 98.1 98.5 Pulse 61 60 72 Resp 18 18 20 B/P (MAP) 142/85 (104) 138/80 (99) 171/92 (118) Pulse Ox 99 98 98 O2 Delivery Room Air Room Air Room Air Room Air 09/11/19 09/11/19 09/11/19 09/11/19 19:38 20:00 20:40 23:00 Temp 97.9 97.9 Pulse 66 Resp 18 18 20 B/P (MAP) 157/95 (115) Pulse Ox 97 93 O2 Delivery Room Air Room Air Room Air Room Air 09/12/19 09/12/19 09/12/19 09/12/19 00:21 01:22 03:00 05:26 Temp 98.1 98.1 Pulse 73 Resp 16 20 16 B/P (MAP) 141/88 (105) Pulse Ox 93 96 O2 Delivery Room Air Room Air Room Air Room Air 09/12/19 09/12/19 09/12/19 09/12/19 06:30 07:00 08:37 08:38 Temp 97.5 97.5 Pulse 66 64 64 Resp 16 17 B/P (MAP) 93/ 169/93 169/93 Pulse Ox 96 O2 Delivery Room Air Room Air Intake and Output 09/11/19 09/11/19 09/12/19 15:00 23:00 07:00 Intake Total 250 ml 600 ml Balance 250 ml 600 ml PARUL CARSON MD Sep 12, 2019 09:20
[2019-09-12 11:00] VITALS: BP 154/84
--- NOTE | 2019-09-12 11:11 | PDOC ---
SURGICAL PROGRESS NOTE Subjective right shoulder pain tolerating diet ambulating Vital Signs Vital Signs Date Time Temp Pulse Resp B/P (MAP) Pulse Ox O2 Delivery O2 Flow Rate FiO2 09/12/19 08:38 64 169/93 09/12/19 08:00 Room Air 09/12/19 07:00 97.5 17 96 97.5 I&O Intake and Output 09/12/19 07:00 Intake Total 850 ml Balance 850 ml Intake Oral 750 ml IV Total 100 ml # Voids 4 General: Alert, Oriented X3, Cooperative Abdomen: Soft, Other (lap dressings dry) Labs Laboratory Tests Test 09/10/19 14:40 White Blood Count 10.6 x10^3/uL (4.0-11.0) Red Blood Count 5.26 x10^6/uL (3.50-5.40) Hemoglobin 13.4 g/dL (12.0-15.5) Hematocrit 41.2 % (36.0-47.0) Mean Corpuscular Volume 78 fL (79-100) Mean Corpuscular Hemoglobin 25 pg (25-35) Mean Corpuscular Hemoglobin Concent 33 g/dL (31-37) Red Cell Distribution Width 16.8 % (11.5-14.5) Platelet Count 287 x10^3/uL (140-400) Neutrophils (%) (Auto) 94 % (31-73) Lymphocytes (%) (Auto) 4 % (24-48) Monocytes (%) (Auto) 2 % (0-9) Eosinophils (%) (Auto) 0 % (0-3) Basophils (%) (Auto) 0 % (0-3) Neutrophils # (Auto) 10.0 x10^3/uL (1.8-7.7) Lymphocytes # (Auto) 0.4 x10^3/uL (1.0-4.8) Monocytes # (Auto) 0.2 x10^3/uL (0.0-1.1) Eosinophils # (Auto) 0.0 x10^3/uL (0.0-0.7) Basophils # (Auto) 0.0 x10^3/uL (0.0-0.2) Sodium Level 136 mmol/L (136-145) Potassium Level 3.5 mmol/L (3.5-5.1) Chloride Level 99 mmol/L (98-107) Carbon Dioxide Level 31 mmol/L (21-32) Anion Gap 6 (6-14) Blood Urea Nitrogen 15 mg/dL (7-20) Creatinine 1.0 mg/dL (0.6-1.0) Estimated GFR (Cockcroft-Gault) 71.0 BUN/Creatinine Ratio 15 (6-20) Glucose Level 159 mg/dL (70-99) Calcium Level 8.9 mg/dL (8.5-10.1) Total Bilirubin 1.2 mg/dL (0.2-1.0) Aspartate Amino Transf (AST/SGOT) 28 U/L (15-37) Alanine Aminotransferase (ALT/SGPT) 22 U/L (14-59) Alkaline Phosphatase 105 U/L (46-116) Total Protein 8.3 g/dL (6.4-8.2) Albumin 3.7 g/dL (3.4-5.0) Albumin/Globulin Ratio 0.8 (1.0-1.7) Problem List Problems Medical Problems: (1) Abdominal pain Status: Acute (2) Cholelithiases Status: Acute Assessment/Plan s/p gila ok to [facility] JORDI GARCIA DIVISION COMMANDER Sep 12, 2019 11:11
--- NOTE | 2019-09-12 13:45 | PDOC3 ---
Discharge Summary Date of Admission: Sep 08, 2019 Date of Discharge: Sep 12, 2019 Follow-Up: 3-5 days Admitting Diagnosis comment: DISCHARGE DX Postop laparoscopic cholecystectomy 09/10 History of Present Illness History of Present Illness 09/12/19 Patient seen and examined She is doing well having some incisional pain and some pleurisy, BP HIGH YESTERDAY Discussed with RN LABILE HTN , IMPROVED Chart reviewed Shadowing gallstones within the gallbladder and mild gallbladder wall thickening. Though no sonographic Stevens's sign was observed by the mobile service rv technician, cholecystitis [facility] Operative Note Operative Note Operative Note Date: 09/10/2019 Preoperative diagnosis acute cholecystitis Postoperative diagnosis: Same Procedure: Lap scopic cholecystectomy Surgeon: Andrade Specimen: Gallbladder Dictation: Patient is a 49-year-old female is mated to the hospital with right upper quadrant abdominal pain all sound showing gallstones mildly thickened gallbladder wall consistent with acute cholecystitis. D/C PLANNING 31 MIN Vitals Vitals Vital Signs Date Time Temp Pulse Resp B/P (MAP) Pulse Ox O2 Delivery O2 Flow Rate FiO2 09/12/19 08:38 64 169/93 09/12/19 07:00 97.5 17 96 Room Air 97.5 Physical Exam General: Alert, Oriented X3, Cooperative, No acute distress Heart: Regular rate, Normal S1, No murmurs Lungs: Clear Abdomen: Normal bowel sounds, Soft, Other (obese) Extremities: No clubbing, No cyanosis, No edema Skin: No rashes, No significant lesion Assessment and Plan Assessmemt and Plan Problems Medical Problems: (1) Abdominal pain Status: Acute (2) Cholelithiases Status: Acute FINAL DIAGNOSIS Problems Medical Problems: (1) Abdominal pain Status: Acute (2) Cholelithiases Status: Acute Brief Hospital Course Ms. Verduzco is a 49 old [sex] who presented with [ACUTE CHOLECYSTITIS ] CONDITION AT DISCHARGE: Improved Discharge Medications Current Medications Fentanyl Citrate (Fentanyl 2ml Vial) 50 mcg PRN Q15MIN PRN IV PAIN GREATER THAN 3/10 Last administered on 09/09/19at 00:50; Start 09/08/19 at 21:45; Stop 09/09/19 at 11:13; Status DC Sodium Chloride 1,000 ml @ 1,000 mls/hr Q1H IV Last administered on 09/08/19at 21:43; Start 09/08/19 at 21:45; Stop 09/08/19 at 22:44; Status DC Ondansetron HCl (Zofran) 4 mg 1X ONCE IV Last administered on 09/08/19at 21:43; Start 09/08/19 at 21:45; Stop 09/08/19 at 21:46; Status DC Hydromorphone HCl (Dilaudid) 1 mg 1X ONCE IV Last administered on 09/09/19at 02:13; Start 09/09/19 at 00:30; Stop 09/09/19 at 00:31; Status DC Piperacillin Sod/ Tazobactam Sod 3.375 gm/Sodium Chloride 50 ml @ 100 mls/hr 1X ONCE IV Last administered on 09/09/19at 00:50; Start 09/09/19 at 00:30; Stop 09/09/19 at 00:59; Status DC Hydralazine HCl (Apresoline Inj) 10 mg 1X ONCE IVP Last administered on 09/09/19at 00:49; Start 09/09/19 at 00:30; Stop 09/09/19 at 00:31; Status DC Ondansetron HCl (Zofran) 4 mg PRN Q8HRS PRN IV NAUSEA/VOMITING; Start 09/09/19 at 01:30; Stop 09/10/19 at 01:30; Status DC Oxycodone/ Acetaminophen (Percocet 5/325) 1 tab PRN Q6HRS PRN PO PAIN Last administered on 09/09/19at 06:04; Start 09/09/19 at 02:45; Stop 09/10/19 at 08:08; Status DC Hydromorphone HCl (Dilaudid) 1 mg 1X ONCE IV Last administered on 09/09/19at 08:30; Start 09/09/19 at 08:30; Stop 09/09/19 at 08:31; Status DC Ketorolac Tromethamine (Toradol 30mg Vial) 30 mg 1X ONCE IVP Last administered on 09/09/19at 08:30; Start 09/09/19 at 08:30; Stop 09/09/19 at 08:31; Status DC Hydromorphone HCl (Dilaudid) 1 mg PRN Q2HRS ONCE IV ; Start 09/09/19 at 11:15; Stop 09/09/19 at 11:16; Status Cancel Hydromorphone HCl (Dilaudid) 2 mg PRN Q2HRS PRN IV PAIN; Start 09/09/19 at 11:15; Stop 09/09/19 at 11:16; Status DC Hydromorphone HCl (Dilaudid) 1 mg PRN Q2HRS PRN IV PAIN Last administered on 09/10/19at 04:20; Start 09/09/19 at 11:15 Losartan Potassium (Cozaar) 100 mg DAILY PO Last administered on 09/12/19at 08:37; Start 09/09/19 at 11:45 Amlodipine Besylate (Norvasc) 10 mg DAILY PO Last administered on 09/12/19at 08:38; Start 09/09/19 at 13:30 Ondansetron HCl (Zofran) 4 mg PRN Q6HRS PRN IV NAUSEA/VOMITING Last administered on 09/10/19at 02:38; Start 09/10/19 at 07:00; Stop 09/11/19 at 06:59; Status DC Fentanyl Citrate (Fentanyl 2ml Vial) 25 mcg PRN Q5MIN PRN IV MILD PAIN 1-3 Last administered on 09/10/19at 08:56; Start 09/10/19 at 07:00; Stop 09/11/19 at 06:59; Status DC Fentanyl Citrate (Fentanyl 2ml Vial) 50 mcg PRN Q5MIN PRN IV MODERATE TO SEVERE PAIN; Start 09/10/19 at 07:00; Stop 09/11/19 at 06:59; Status DC Morphine Sulfate (Morphine Sulfate) 1 mg PRN Q10MIN PRN IV SEVERE PAIN 7-10; Start 09/10/19 at 07:00; Stop 09/11/19 at 06:59; Status DC Ringer's Solution 1,000 ml @ 30 mls/hr Q24H IV Last administered on 09/10/19at 07:00; Start 09/10/19 at 07:00; Stop 09/10/19 at 18:59; Status DC Hydromorphone HCl (Dilaudid) 0.5 mg PRN Q10MIN PRN IV SEV PAIN, Second choice; Start 09/10/19 at 07:00; Stop 09/11/19 at 06:59; Status DC Prochlorperazine Edisylate (Compazine) 5 mg PACU PRN PRN IV NAUSEA, MRX1; Start 09/10/19 at 07:00; Stop 09/11/19 at 06:59; Status DC Piperacillin Sod/ Tazobactam Sod 3.375 gm/Sodium Chloride 50 ml @ 100 mls/hr Q6H IV Last administered on 09/12/19at 12:12; Start 09/09/19 at 16:00 Bupivacaine HCl/ Epinephrine Bitart (Sensorcaine-Epi 0.25%-1:965750 Mpf) 30 ml 1X ONCE INJ ; Start 09/09/19 at 17:45; Stop 09/09/19 at 17:43; Status DC Bupivacaine HCl/ Epinephrine Bitart (Sensorcaine-Epi 0.25%-1:868340 Mpf) 30 ml 1X ONCE INJ Last administered on 09/10/19at 07:48; Start 09/10/19 at 06:00; Stop 09/10/19 at 06:01; Status DC Ondansetron HCl (Zofran) 4 mg PRN Q8HRS PRN IVP NAUSEA/VOMITING; Start 09/10/19 at 02:15 Propofol 20 ml @ As Directed STK-MED ONCE IV ; Start 09/10/19 at 07:00; Stop 09/10/19 at 07:01; Status DC Lidocaine HCl (Lidocaine Pf 2% Vial) 5 ml STK-MED ONCE .ROUTE ; Start 09/10/19 at 07:00; Stop 09/10/19 at 07:01; Status DC Fentanyl Citrate (Fentanyl 2ml Vial) 100 mcg STK-MED ONCE .ROUTE ; Start 09/10/19 at 07:00; Stop 09/10/19 at 07:01; Status DC Succinylcholine Chloride (Anectine) 200 mg STK-MED ONCE .ROUTE ; Start 09/10/19 at 07:00; Stop 09/10/19 at 07:01; Status DC Rocuronium [place] (Zemuron) 50 mg STK-MED ONCE .ROUTE ; Start 09/10/19 at 07:00; Stop 09/10/19 at 07:01; Status DC Iohexol (Omnipaque 300 Mg/ml) 50 ml STK-MED ONCE .ROUTE ; Start 09/10/19 at 07:01; Stop 09/10/19 at 07:01; Status DC Cellulose (Surgicel Hemostat 4x8) 1 each STK-MED ONCE .ROUTE ; Start 09/10/19 at 07:01; Stop 09/10/19 at 07:01; Status DC Ondansetron HCl (Zofran) 4 mg STK-MED ONCE .ROUTE ; Start 09/10/19 at 07:35; Stop 09/10/19 at 07:35; Status DC Dexamethasone Sodium Phosphate (Decadron) 4 mg STK-MED ONCE .ROUTE ; Start 09/10/19 at 07:35; Stop 09/10/19 at 07:35; Status DC Desflurane (Suprane) 30 ml STK-MED ONCE IH ; Start 09/10/19 at 07:35; Stop 09/10/19 at 07:35; Status DC Phenylephrine HCl (PHENYLEPHRINE in 0.9% NACL PF) 1 mg STK-MED ONCE IV ; Start 09/10/19 at 07:38; Stop 09/10/19 at 07:39; Status DC Glycopyrrolate (Robinul) 1 mg STK-MED ONCE .ROUTE ; Start 09/10/19 at 07:47; Stop 09/10/19 at 07:48; Status DC Neostigmine Methylsulfate (Neostigmine Methylsulfate) 5 mg STK-MED ONCE .ROUTE ; Start 09/10/19 at 07:47; Stop 09/10/19 at 07:48; Status DC Oxycodone/ Acetaminophen (Percocet 5/325) 1 tab PRN Q4HRS PRN PO MILD PAIN 1-3 Last administered on 09/11/19at 05:34; Start 09/10/19 at 08:15 Oxycodone/ Acetaminophen (Percocet 5/325) 2 tab PRN Q4HRS PRN PO MODERATE PAIN, SEVERE PAIN Last administered on 09/12/19at 05:26; Start 09/10/19 at 08:15 Ketorolac Tromethamine (Toradol 15mg Vial) 15 mg Q6HRS IVP Last administered on 09/11/19at 06:18; Start 09/10/19 at 12:00; Stop 09/11/19 at 11:59; Status DC Fentanyl Citrate (Fentanyl 2ml Vial) 100 mcg STK-MED ONCE .ROUTE ; Start 09/10/19 at 08:52; Stop 09/10/19 at 08:53; Status DC Clonidine HCl (Catapres) 0.2 mg PRN Q4HRS PRN PO HYPERTENSION Last administered on 09/11/19at 09:31; Start 09/10/19 at 11:15 Non-Formulary Medication (Losartan Potassium ) 100 mg DAILY PO ; Start 09/12/19 at 09:00; Stop 09/11/19 at 15:37; Status DC Lactobacillus Rhamnosus (Culturelle) 1 cap BID PO Last administered on 09/12/19at 08:37; Start 09/11/19 at 21:00 Simethicone (Gas-X) 80 mg PRN AFTMEALHC PRN PO GAS / BLOATING Last administered on 09/11/19at 18:12; Start 09/11/19 at 18:00 Active Scripts Active Reported Losartan Potassium 100 Mg Tablet 100 Mg PO DAILY Vital Signs Vital Signs Date Time Temp Pulse Resp B/P (MAP) Pulse Ox O2 Delivery O2 Flow Rate FiO2 09/12/19 11:00 74 17 154/84 (107) 94 Room Air 09/12/19 07:00 97.5 97.5 Labs Laboratory Tests Test 09/10/19 14:40 White Blood Count 10.6 x10^3/uL (4.0-11.0) Red Blood Count 5.26 x10^6/uL (3.50-5.40) Hemoglobin 13.4 g/dL (12.0-15.5) Hematocrit 41.2 % (36.0-47.0) Mean Corpuscular Volume 78 fL (79-100) Mean Corpuscular Hemoglobin 25 pg (25-35) Mean Corpuscular Hemoglobin Concent 33 g/dL (31-37) Red Cell Distribution Width 16.8 % (11.5-14.5) Platelet Count 287 x10^3/uL (140-400) Neutrophils (%) (Auto) 94 % (31-73) Lymphocytes (%) (Auto) 4 % (24-48) Monocytes (%) (Auto) 2 % (0-9) Eosinophils (%) (Auto) 0 % (0-3) Basophils (%) (Auto) 0 % (0-3) Neutrophils # (Auto) 10.0 x10^3/uL (1.8-7.7) Lymphocytes # (Auto) 0.4 x10^3/uL (1.0-4.8) Monocytes # (Auto) 0.2 x10^3/uL (0.0-1.1) Eosinophils # (Auto) 0.0 x10^3/uL (0.0-0.7) Basophils # (Auto) 0.0 x10^3/uL (0.0-0.2) Sodium Level 136 mmol/L (136-145) Potassium Level 3.5 mmol/L (3.5-5.1) Chloride Level 99 mmol/L (98-107) Carbon Dioxide Level 31 mmol/L (21-32) Anion Gap 6 (6-14) Blood Urea Nitrogen 15 mg/dL (7-20) Creatinine 1.0 mg/dL (0.6-1.0) Estimated GFR (Cockcroft-Gault) 71.0 BUN/Creatinine Ratio 15 (6-20) Glucose Level 159 mg/dL (70-99) Calcium Level 8.9 mg/dL (8.5-10.1) Total Bilirubin 1.2 mg/dL (0.2-1.0) Aspartate Amino Transf (AST/SGOT) 28 U/L (15-37) Alanine Aminotransferase (ALT/SGPT) 22 U/L (14-59) Alkaline Phosphatase 105 U/L (46-116) Total Protein 8.3 g/dL (6.4-8.2) Albumin 3.7 g/dL (3.4-5.0) Albumin/Globulin Ratio 0.8 (1.0-1.7) Allergies Allergies Coded Allergies Type Severity Reaction Last Updated Verified Sulfa (Sulfonamide Antibiotics) Allergy Intermediate Hives. 05/05/16 Yes Disposition/Orders: D/C to Home Patient Instructions D/C PLANNING 31 MIN PARUL CARSON MD Sep 12, 2019 13:45
[2019-09-12] MEDS ORDERED: SIME80TA14 PO (13:47)
[2019-09-12] MEDS ORDERED: LACT1CAP19 PO (13:47)
[2019-09-12] MEDS ORDERED: AMLO10TA8 PO (13:47)
--- NOTE | 2019-09-12 13:49 | DISCH ---
DISCHARGE INSTRUCTIONS Condition on Discharge Condition on Discharge: Stable Activity After Discharge Activity Instructions for Disc: Activity as tolerated, Avoid exertion Lifting Instructions after Dis: No heavy lifting, No pulling or pushing Driving Instructions after Dis: Do not drive Diet after Discharge Diet after Discharge: Cardiac, Regular Checks after Discharge Checks after discharge: Check blood press - daily Contacting the [facility] after DC Call your doctor for: If your condition worsens Follow-Up Follow up with: SURGERY IN 2 WEEKS Follow Up With: PCP ONE WEEK Treatment/Equipment after DC Adaptive Equipment Issued: None PARUL CARSON MD Sep 12, 2019 13:49
[2019-09-12 15:00] VITALS: BP 171/90
--- NOTE | 2019-09-12 16:32 | NUR ---
SW following. Discussed with RN, pt is from home. RN advised no SW needs, pt discharging home today with self care.
--- NOTE | 2019-09-12 17:35 | NUR ---
Discharge Note: PT DISCHARGED HOME WITH SELF CARE. PT LEFT FACILITY VIA PRIVATE VEHICLE WITH SON AT 1654. PT STABLE AND ALERT UPON DISCHARGE. PT PIV REMOVED FROM L FA WITHOUT COMPLICATIONS, BANDAGE APPLIED. PT EDUCATED ABOUT DISCHARGE INSTRUCTIONS, DISCHARGE MEDICATIONS, AND FOLLOW-UP INSTRUCTIONS. PT VOICED NO CONCERNS AT THIS TIME. PT GIVEN POST-OP CARE INSTRUCTIONS WELL. PT LEFT WITH ALL PERSONAL BELONGINGS. [place] Discharge instructions and discharge home medications reviewed with Patient and a copy given. All questions have been answered and understanding verbalized.
--- NOTE | 2019-09-14 10:07 | PATHOLOGY ---
[facility] Accession Number: [id number] . 01 Material submitted: . gallbladder - GALLBLADDER AND CONTENTS . 01 Clinical history: . Cholelithiasis . 02 Diagnosis: Gallbladder and focally attached liver tissue, laparoscopic cholecystectomy: - Cholelithiasis. - Chronic cholecystitis. (JPM:parimutuel ticket cashier; 09/13/2019) R 09/13/2019 1346 Local . 02 Comment: There is no evidence of malignancy. (JPM:parimutuel ticket cashier; 09/13/2019) . 02 Electronically signed: . Donnie Barker MD, Pathologist NPI- [id number] . 01 Gross description: . The specimen is received in formalin, labeled "Jose Eduardo Dax, gallbladder and contents". Received is a previously punctured gallbladder measuring 8.1 x 2.9 x 2.8 cm in greatest dimensions displaying a bile-stained serosal surface. Opening the specimen reveals a velvety, bile-stained mucosa with a gallbladder wall thickness of 0.1 cm. Calculi are present displaying a bright yellow and nodular appearance, and no masses or lesions are noted grossly. At the fundal aspect, there is a slight amount of attached orange-arthur liver tissue measuring 1.4 x 0.9 x 0.6 cm in greatest dimensions. Email Developer sections, to include the proximal margin and liver tissue, are submitted in cassette A1. (CAA; 09/12/2019) QAC/QAC 09/12/2019 0921 Local . 02 Pathologist provided ICD-10: K80.10 . 02 CPT . 121415 Specimen Comment: A courtesy copy of this report has been sent to [phone], [phone] Specimen Comment: [id number] Specimen Comment: Report sent to / DR CASTRO Performed at: 01 [facility] [address] [address], [place], [place] [id number] MD Mao Quintana MD Phone: [phone] Performed at: 02 [facility] [address] [place], [place] [id number] MD Donnie Barker MD Phone: [phone]
== END 2019-09-12 16:54 | disposition home or self-care (01) | DRG 418 ==
LOC: ER 20:57 → 5 SOUTH 09-09 01:49
PROVIDERS: ADMIT Internal Medicine; ATTEND Internal Medicine
PROC: 0FT44ZZ Resection of Gallbladder, Percutaneous Endoscopic Approach (ICD-10-PCS; principal; 2019-09-10 07:30)
DX: K80.12 Calculus of gallbladder with acute and chronic cholecystitis without obstruction (principal); Z68.43 Body mass index [BMI] 50.0-59.9, adult; E66.01 Morbid (severe) obesity due to excess calories; I10 Essential (primary) hypertension; Z82.49 Family history of ischemic heart disease and other diseases of the circulatory system; Z91.19 Patient's noncompliance with other medical treatment and regimen; R09.1 Pleurisy
CPT/HCPCS: 36415; 76705; 80053; 81001; 83690; 84484; 85025; 93005; 96374; 96375; 96376; A7015; J0330; J0360; J1100; J1170; J1885; J2001; J2370; J2405; J2543; J2704; J2710; J3010; J3490; J7030; J7120; Q9967; 99284-25; G0378

== ENCOUNTER 2021-09-25 21:44 | Emergency (ER) | payer SELFPAY ==
[~2021-09-25] VITALS: Ht 160 cm; Wt 130.3 kg
[~2021-09-25 21:44] MED LIST changes: +AMLO-187 PO; +CYCL10TA19 PO; -CYCL10TA2 PO; +LACT1CAP19 PO; -LISI1TAB19 PO; +LISI1TAB37 PO; +LOSA100T14 PO; +SIME80TA14 PO
--- NOTE | 2021-09-25 22:15 | PHYS DOC ---
Past Medical History Past Medical History: Hypertension Additional Past Medical Histor: non compliant Past Surgical History: , Tubal ligation Smoking Status: Never Smoker Alcohol Use: None Drug Use: None General Adult EDM: Chief Complaint: FLU SYMPTOM HPI: HPI: Patient is a 51-year-old female that presents today with cough and fatigue that started today. Patient states that her boyfriend with whom she lives with tested positive for COVID-19 yesterday and she said today she started having a cough with fatigue. Patient denies fever and chills, chest pain or shortness of air. Patient does state that she had her Pfizer vaccines x2 she does not remember the dates of those vaccines. She has not had the booster. Patient does state that she follows with [place] clinic [place] [address] for [place] management. Review of Systems: Review of Systems: Constitutional: Denies fever or chills. [] Eyes: Denies change in visual acuity. [] HENT: Denies nasal congestion or sore throat. [] Respiratory: Cough Cardiovascular: Denies chest pain or edema. [] GI: Denies abdominal pain, nausea, vomiting, bloody stools or diarrhea. [] : Denies dysuria. [] Musculoskeletal: Denies back pain or joint pain. [] Integument: Denies rash. [] Neurologic: Fatigue Endocrine: Denies polyuria or polydipsia. [] Lymphatic: Denies swollen glands. [] Psychiatric: Denies depression or anxiety. [] Heart Score: C/O Chest Pain: N/A Risk Factors: Risk Factors: DM, Current or recent (<one month) smoker, HTN, HLP, family history of CAD, obesity. Risk Scores: Score 0 - 3: 2.5% MACE over next 6 weeks - Discharge Home Score 4 - 6: 20.3% MACE over next 6 weeks - Admit for Clinical Observation Score 7 - 10: 72.7% MACE over next 6 weeks - Early Invasive Strategies Allergies: Allergies: Allergies Coded Allergies Type Severity Reaction Last Updated Verified Sulfa (Sulfonamide Antibiotics) Allergy Intermediate Hives. 05/05/16 Yes Physical Exam: PE: Constitutional: Well developed, well nourished, no acute distress, non-toxic appearance. [] HENT: Normocephalic, atraumatic, bilateral external ears normal, oropharynx moist, no oral exudates, nose normal. [] Eyes: PERRLA, EOMI, conjunctiva normal, no discharge. [] Neck: Normal range of motion, no tenderness, supple, no stridor. [] Cardiovascular:Heart rate regular rhythm, no murmur [] Lungs & Thorax: Bilateral breath sounds clear to auscultation [] Abdomen: Bowel sounds normal, soft, no tenderness, no masses, no pulsatile masses. [] Skin: Warm, dry, no erythema, no rash. [] Back: No tenderness, no CVA tenderness. [] Extremities: No tenderness, no cyanosis, no clubbing, ROM intact, no edema. [] Neurologic: Alert and oriented X 3, normal motor function, normal sensory function, no focal deficits noted. [] Psychologic: Affect normal, judgement normal, mood normal. [] Current Patient Data: Labs: Laboratory Tests Test 09/25/21 21:55 Influenza Type A Antigen Negative Influenza Type B Antigen Negative SARS-CoV-2 Antigen (Rapid) Positive Vital Signs: Vital Signs Date Time Temp Pulse Resp B/P (MAP) Pulse Ox O2 Delivery O2 Flow Rate FiO2 09/25/21 23:25 85 18 182/88 (119) 96 Room Air 09/25/21 22:55 86 18 161/88 (112) 94 Room Air 09/25/21 22:25 80 18 165/87 (113) 95 09/25/21 21:50 102 18 170/86 (114) 100 Room Air 09/25/21 21:45 98.6 95 18 170/86 (114) 97 Room Air 98.6 Vital Signs Date Time Temp Pulse Resp B/P (MAP) Pulse Ox O2 Delivery O2 Flow Rate FiO2 09/25/21 22:32 95 18 170/86 (114) 97 Room Air 09/25/21 21:45 98.6 95 18 170/86 (114) 97 Room Air 98.6 EKG: EKG: [] Radiology/Procedures: Radiology/Procedures: REASON: COUGH PROCEDURE: CHEST AP ONLY Single view chest dated 09/26/2021 3:05 AM: COMPARISON: 08/23/2019 Clinical Indication: Cough. Findings: Single upright portable exam of the chest was performed. Heart and mediastinal contours are stable. Lungs are clear. No consolidation or pleural effusion. No pneumothorax. IMPRESSION: No acute radiographic abnormality. Electronically signed by: Rj Blackwell MD (09/26/2021 3:06 AM) [facility] Course & Med Decision Making: Course & Med Decision Making Pertinent Labs and Imaging studies reviewed. (See chart for details) 234 did review laboratory and radiological results with patient, did inform her of her COVID-positive status, did inform her that she will need to quarantine for the next 10 days from the first day of her symptoms starting. She is to take Tylenol and/or ibuprofen as needed for pain. Increase by mouth fluids return to the emergency department for increased work of breathing, nausea and vomiting or unable to keep by mouth fluids down or fever not relieved with Tylenol and/or ibuprofen. Patient verbalizes understanding and is agreeable to the plan of care. Axel Disclaimer: Axel Disclaimer: This electronic medical record was generated, in whole or in part, using a voice recognition dictation system. Departure Departure Impression: Primary Impression: COVID-19 Disposition: 01 HOME / SELF CARE / HOMELESS Condition: STABLE Referrals: TRUPTI ESPINOSA [employer]PER[employer] (PCP) Additional Instructions: You have been tested for or diagnosed with COVID-19. It is an infection caused by a new type of coronavirus. COVID-19 will cause cold-like or mild flu symptoms in most. It can cause more severe symptoms like problems breathing in some. There is no treatment for COVID-19. The body will clear the infection over time. Self-care will help to ease discomfort. Steps to Take: Self-Care Rest as needed. Healthy habits may help you feel better. Steps include: Choose healthy foods including fruits and vegetables. Drink water throughout the day. Get plenty of sleep each night. If you smoke, try to quit. It may ease breathing. Avoid alcohol. Keep Others Healthy The virus can spread to others. Droplets are released every time you sneeze or cough. The droplets can get into the mouth, nose, or eyes of people near you and lead to infection. To lower the chances of spreading COVID-19 to others: Stay at home until your doctor has said it is safe to leave. If you tested positive this will mean staying isolated until both of the following are true: At least 10 days have passed since the start of illness. You are free of fever for at least 72 hours without the use of medicine. During this time: - Avoid public areas, events, or transportation. Do not return to work or school until your doctor has said it is safe to do so. - Call ahead if you need to go to a medical center. Let them know you may have COVID-19. It will help them guide you where to go. They may also ask you to wear a facemask when you come to the office. - If you call for emergency medical services, let them know you may have COVID- 19. While at home: - Try to avoid close contact with others. Stay about 6 feet away. - If possible, spend most of your time in a separate room from others. - Use a face mask if you will be in close contact with others such as sharing a room or vehicle. - Have someone wipe down common surfaces in the home. Use household fence erector supervisor every day on areas like doorknobs, counters, or sinks. - Cough or sneeze into a tissue. Throw the tissue away right after use. If a tissue is not available, cough or sneeze into your elbow. - Wash your hands often. Wash them after sneezing or coughing. Use soap and water and wash for at least 20 seconds. Alcohol based hand street light cleaner can be used if soap and water is not available. - Do not prepare food for others. Avoid sharing personal items like forks, spoons, or toothbrushes. - Avoid close contact with pets while you are sick. There is no evidence of the virus passing to pets. This is a safety step until more is known about this virus. Isolation can be frustrating. Social interaction can help. Keep in touch with friends and family through phone and tech options. You can still interact with others in your home, just keep a safe distance of about 6 feet. Follow-up: Your doctors office will check in with you to see if there are any changes in your health. You may be asked to keep track of symptoms to share with them. They will also let you know when you are clear to be in public again. Problems to Look Out For: Contact your doctor if your recovery is not going as you expect. Get emergency care if you have problems such as: - Trouble breathing - Nonstop chest pain or pressure - Changes in awareness, confusion, or problems waking - Lips or face have bluish color - Worsening of symptoms If you think you have an emergency, call for emergency medical services right away. As taken from [facility] RICHAR WEISS APRN Sep 25, 2021 22:15
[2021-09-25 22:34] LABS: INFLUENZA A PATIENT NEGATIVE (NEGATIVE); INFLUENZA B PATIENT NEGATIVE (NEGATIVE)
[2021-09-25 23:25] VITALS: BP 182/88
--- NOTE | 2021-09-26 03:09 | RAD ---
Single view chest dated 09/26/2021 3:05 AM: COMPARISON: 08/23/2019 Clinical Indication: Cough. Findings: Single upright portable exam of the chest was performed. Heart and mediastinal contours are stable. L ungs are clear. No consolidation or pleural effusion. No pneumothorax. IMPRESSION: No acute radiographic abnormality. Electronically signed by: Rj Blackwell MD (09/26/2021 3:06 AM) [facility]
== END 2021-09-26 00:07 | disposition home or self-care (01) ==
LOC: ER 21:44
DX: U07.1 COVID-19 (principal); I10 Essential (primary) hypertension; Z88.2 Allergy status to sulfonamides
CPT/HCPCS: 71045; 87428; 99284